=== PATIENT | female | born 2000 | race Caucasian/White ===

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

== ENCOUNTER → 2019-04-07 16:35 | Outpatient (CLI) | payer OTHER, SELFPAY ==
[2019-04-13 13:15] LABS: Neisseria gonorrhoeae, NAA Negative (Negative)
== END ==
PROVIDERS: Visit Provider Nurse Practitioner Obstetrics & Gynecology
DX: R10.2 Pelvic and perineal pain (principal); Z72.51 High risk heterosexual behavior
CPT/HCPCS: 87491; 87591

== ENCOUNTER → 2019-04-12 10:51 | Outpatient (CLI) | payer OTHER, SELFPAY ==
--- NOTE | 2019-04-12 10:52 | US_ITS ---
PROCEDURE: US TRANSVAGINAL CLINICAL INDICATION: US T/V- LLQP Left lower quadrant pain COMPARISON: [facility]BT[facility] US OB transvaginal from 04/23/2018 FINDINGS: Retroverted uterus which measures 8 x 4 x 5 cm with an 8 mm combined endometrial thickness. No uterine mass evident. Left ovary is 4 x 3 cm and contains a 15 mm cyst and other smaller follicles. Right ovary has been removed. No cul-de-sac fluid evident. IMPRESSION: Retroverted uterus. Small left ovarian cyst otherwise negative Dictated by: Steve Singer MD 04/12/2019 16:41 Electronically signed by Steve Singer MD in [facility] 04/12/2019 16:41
== END ==
PROVIDERS: PCP Internal Medicine Adolescent Medicine; Visit Provider Nurse Practitioner Obstetrics & Gynecology
DX: R10.32 Left lower quadrant pain (principal)
CPT/HCPCS: 76830

== ENCOUNTER → 2019-11-30 17:28 | Outpatient (CLI) | payer OTHER, SELFPAY ==
[2019-12-06 09:35] LABS: Neisseria gonorrhoeae, NAA Negative (Negative)
== END ==
PROVIDERS: Visit Provider Nurse Practitioner Obstetrics & Gynecology
DX: Z72.51 High risk heterosexual behavior (principal)
CPT/HCPCS: 87491; 87591

== ENCOUNTER 2020-01-27 11:42 | Emergency (ER) | payer OTHER, SELFPAY ==
[2020-01-27 11:48] VITALS: BP 154/96; PULSE 107; RESP 18; TEMP 36.8; O2SAT 98; BMI 30.9
--- NOTE | 2020-01-27 11:48 | HMH.EDUTC ---
[facility] [place] Clinical Impression: Strep throat Disposition: Home, Self-Care Condition on Discharge: Good Instructions: Strep Throat, DI for Strep Throat Additional Instructions: Drink plenty of fluids. Take tylenol or ibuprofen for pain or fever. Take the medications as directed. Follow up with your regular doctor. GO TO THE ER FOR ANY WORSENING SYMPTOMS Throw your tooth brush away and get a new one. Prescriptions: predniSONE [Deltasone 10mg tablet] 10 mg PO BID 4 Days #8 tab Transmission Status: Received by [facility] Azithromycin [Z-Jeanmarie 250mg Tab*] 250 mg PO UD DOSE PK #6 tab Transmission Status: Received by [facility] Referrals: Tobi Joel MD [Primary Care Provider] - Time of Disposition: 12:14 Medical Decision Making - Medical Records Medical records reviewed: No: I reviewed the patient's medical records. - Mayito Inquiry Pt receiving controlled substance: No Vital Signs: 01/27/20 11:48 01/27/20 12:18 Temperature 98.2 F 98.2 F Temperature Source Oral Oral Pulse Rate 107 H Pulse Rate [Radial] 107 H Respiratory Rate 18 18 Blood Pressure 154/96 H Blood Pressure [Right Arm] 154/96 H Blood Pressure Mean [Right Arm] 115 Blood Pressure Source Automatic Cuff Blood Pressure Source [Right Arm] Automatic Cuff Blood Pressure Position Sitting Blood Pressure Position [Right Arm] Sitting 02 Sat by Pulse Oximetry 98 Oxygen Delivery Method Room Air Room Air - Lab Data Lab results reviewed: Yes: I reviewed the patient's lab results. Lab Results 01/27/20 11:49: Strep Scn Rapid Clinic Positive A [facility] [place] - General Stated complaint: sore throat, stuffy nose Time Seen by Provider: 01/27/20 12:07 - History of Present Illness Provider Complaint: She c/o sore throat since yesterday. She denies any exposure to covid. She refuses a covid test today. - Related Data Previous Rx's Medication Instructions Recorded metronidazole 500 mg tablet 500 mg PO BID 14 Days #28 tab 11/30/19 Azithromycin [Z-Jeanmarie 250mg Tab*] 250 mg PO UD DOSE PK #6 tab 01/27/20 predniSONE [Deltasone 10mg tablet] 10 mg PO BID 4 Days #8 tab 01/27/20 Allergies Allergy/AdvReac Type Severity Reaction Status Date / Time Sulfa (Sulfonamide Allergy Mild Verified 11/30/19 15:46 Antibiotics) [facility] History - Hepatitis A Screen Attestation statement:: This patient has been screened for Hepatitis A risk factors. I have reviewed the patient's past medical history: Yes Medical History: Reports:: Depression, Gastroesophageal Reflux Disease(GERD), Hypertension, MRSA Denies:: Anxiety, Cancer, Diabetes Mellitus Type 1, Diabetes Mellitus Type 2, Internal Pacemaker, Migraine, Seizures Other Medical History: Denies: Blood Transfusion Reaction Comment: obesity, 6 weeks Laterality Cases: Bilateral: Myringotomy (Ear Tubes), Tonsillectomy Other Surgeries: Yes: Other. No: , Pacemaker Amputation: No Fractures: No Comment: ear tubes, right ovary and right tube removed due cyst, 10/2017 - Social History Smoking Status: Current every day smoker Tobacco Type: cigarettes # Packs/Day (cigarettes): 1 Alcohol Intake: never Alcohol Intake Frequency:: other Substance Use Type: denies use Occupational Status: unemployed Housing: apartment Household Members: significant other - Psychiatric History Pschychiatric History:: Reports:: Depression Denies:: Anxiety Family Hx:: Cancer ROS Obtained: Yes All systems reviewed & no additional complaints - Constitutional Constitutional: Reports chills, Reports fever(s), Reports poor appetite, Reports malaise - Eyes Eyes: Denies eye discharge - ENT Ears, Nose, Mouth, and Throat: Reports as per HPI - Cardiovascular Cardiovascular: Denies chest pain Physical Exam - General General appearance: alert, in no apparent distress - Head Head exam: atraumatic, normocephalic, normal inspection - Eye Ey
[2020-01-27 12:00] LABS: UTC Strep Screen (Rapid) Positive (Negative)
[2020-01-27 12:18] VITALS: BP 154/96; PULSE 107; RESP 18; TEMP 36.8; O2SAT 98
== END 2020-01-27 12:19 | disposition home or self-care (01) ==
PROVIDERS: Emergency Provider Nurse Practitioner Family; PCP Internal Medicine Adolescent Medicine
DX: J02.0 Streptococcal pharyngitis (principal); K21.9 Gastro-esophageal reflux disease without esophagitis; I10 Essential (primary) hypertension; F33.1 Major depressive disorder, recurrent, moderate; F17.210 Nicotine dependence, cigarettes, uncomplicated; Z88.2 Allergy status to sulfonamides
CPT/HCPCS: 87880; 99201

== ENCOUNTER → 2020-06-04 09:37 | Outpatient (CLI) | payer OTHER, SELFPAY ==
[2020-06-04 10:44] LABS: HCG,Quantitative 203 mIU/ml (0-5.42)
== END ==
PROVIDERS: Visit Provider Nurse Practitioner Obstetrics & Gynecology
DX: Z34.90 Encounter for supervision of normal pregnancy, unspecified, unspecified trimester (principal)
CPT/HCPCS: 36415; 84702

== ENCOUNTER 2020-08-18 20:52 | Emergency (ER) | payer OTHER, SELFPAY ==
[2020-08-18 20:53] VITALS: RESP 18; TEMP 36.8; O2SAT 99; BMI 37.8
[2020-08-18 21:19] VITALS: BP 133/79; PULSE 96; RESP 14; TEMP 37.5; O2SAT 96; BMI 32.4
--- NOTE | 2020-08-18 21:39 | HMH.EDUTC ---
[facility]: Vaginal yeast infection Disposition: Home, Self-Care Condition on Discharge: Good Instructions: DI for Vaginal Yeast Infection, Fluconazole Additional Instructions: Drink plenty of fluids. Take the medications as directed. Follow up with your accounts manager Follow up with your regular doctor. GO TO THE ER FOR ANY WORSENING SYMPTOMS Prescriptions: Fluconazole [Diflucan 100mg tablet] 100 mg PO DAILY 2 Days #2 tab Transmission Status[facility] Nystatin [Nystatin Cr 100,000 Units/GM 30GM] 1 applicatio TP BID 14 Days #1 tube Transmission Status: Received by [facility] Referrals: Tobi Joel MD [Primary Care Provider] - Time of Disposition: 21:42 Medical Decision Making - Medical Records Medical records reviewed: No: I reviewed the patient's medical records. - Mayito Inquiry Pt receiving controlled substance: No Vital Signs: 08/18/20 20:53 08/18/20 21:19 08/18/20 21:45 Temperature 98.2 F 99.5 F 99.5 F Temperature Source Oral Oral Pulse Rate 96 H Pulse Rate [Right] 96 H Respiratory Rate 18 14 14 Blood Pressure 133/79 Blood Pressure [Right Arm] 133/79 Blood Pressure Mean [Right Arm] 97 02 Sat by Pulse Oximetry 99 96 Oxygen Delivery Method Room Air Orders (Tests/Meds): ED MEDICATIONS Discontinued Medications Generic Name Dose Route Start Last Admin Trade Name Freq PRN Reason Stop Dose Admin Fluconazole 200 mg 08/19/20 09:00 Fluconazole 200mg Tablet PO 08/26/20 08:59 DAILY LIBAN Protocol Fluconazole 200 mg 08/18/20 21:43 08/18/20 21:45 Fluconazole 100mg Tablet PO 08/18/20 21:44 200 mg ONCE ONE Administration Protocol [facility] - General Chief complaint: Urogenital-Female Stated complaint: Vag is swollen Time Seen by Provider: 08/18/20 21:39 Description of Symptoms (Recalled from Triage Doc. by RN): pt states had a d/c month ago. last week was diagnosed with uti/yeast infection and group b strep in urine HEENT Symptoms (Recalled from RN notes): No Resp Symptoms (Recalled from RN notes): No Skin Symptoms (Recalled from RN notes): No MS Symptoms (Recalled from RN notes): No Functional Status (Recalled from RN notes): wnl - History of Present Illness Provider Complaint: She states that she has had vaginal irritation for the past 3 days. She believes that she has a yeast infection. She is currently on keflex for a uti. She denies that she could be . - Related Data Previous Rx's Medication Instructions Recorded metronidazole 500 mg tablet 500 mg PO BID 14 Days #28 tab 11/30/19 Azithromycin [Z-Jeanmarie 250mg Tab*] 250 mg PO UD DOSE PK #6 tab 01/27/20 predniSONE [Deltasone 10mg tablet] 10 mg PO BID 4 Days #8 tab 01/27/20 nitrofurantoin 100 mg PO Q12H 7 Days #14 cap 06/18/20 monohydrate/macrocrystals 100 mg capsule Fluconazole [Diflucan 100mg tablet] 100 mg PO DAILY 2 Days #2 tab 08/18/20 Nystatin [Nystatin Cr 100,000 1 applicatio TP BID 14 Days #1 tube 08/18/20 Units/GM 30GM] Allergies Allergy/AdvReac Type Severity Reaction Status Date / Time Sulfa (Sulfonamide Allergy Mild Verified 11/30/19 15:46 Antibiotics) - Worker's Comp Is this a Worker's Comp case?: No [facility] History - Hepatitis A Screen Drug use history?: No High risk sexual behaviors?: No History of sexually transmitted infection?: No Currently employed?: No Childcare worker?: No Do you have indoor plumbing?: Yes Do you have electricity?: Yes Attestation statement:: This patient has been screened for Hepatitis A risk factors. I have reviewed the patient's past medical history: Yes Medical History: Reports:: Depression, Gastroesophageal Reflux Disease(GERD), Hypertension, MRSA Denies:: Anxiety, Cancer, Diabetes Mellitus Type 1, Diabetes Mellitus Type 2, Internal Pacemaker, Migraine, Seizures Other Medical History: Denies: Blood Transfusion Reactio
[2020-08-18 21:45] VITALS: BP 133/79; PULSE 96; RESP 14; TEMP 37.5; O2SAT 96
== END 2020-08-18 21:46 | disposition home or self-care (01) ==
PROVIDERS: Emergency Provider Nurse Practitioner Family; PCP Internal Medicine Adolescent Medicine
DX: B37.3 Candidiasis of vulva and vagina (principal); K21.9 Gastro-esophageal reflux disease without esophagitis; I10 Essential (primary) hypertension; F33.1 Major depressive disorder, recurrent, moderate; F17.210 Nicotine dependence, cigarettes, uncomplicated
CPT/HCPCS: 99282

== ENCOUNTER 2020-09-02 13:15 | Emergency (ER) | payer OTHER, SELFPAY ==
--- NOTE | 2020-09-02 14:10 | XR_ITS ---
PROCEDURE INFORMATION: Exam: XR Left Ankle Exam date and time: 09/02/2020 2:10 PM Age: 20 years old Clinical indication: Injury or trauma; Fall; Blunt trauma; Injury details: Struck left ankle on trailer hitch while running last night. TECHNIQUE: Imaging protocol: XR Left ankle. Views: 3 or more views. COMPARISON: No relevant prior studies available. FINDINGS: Bones/joints: There is no evidence of acute fracture. There is no evidence of joint malalignment or dislocation. Soft tissues: There are no soft tissue masses or fluid collections. IMPRESSION: 1. No evidence of acute fracture. 2. No evidence of acute dislocation.
--- NOTE | 2020-09-02 14:10 | XR_ITS ---
PROCEDURE INFORMATION: Exam: XR Left Foot Exam date and time: 09/02/2020 2:10 PM Age: 20 years old Clinical indication: Injury or trauma; Fall; Blunt trauma; Left; Patient HX: Patient was running last night and hit foot on trailer hitch. ; Additional info: Tripped over trailor hitch TECHNIQUE: Imaging protocol: XR Left foot. Views: 3 or more views. COMPARISON: No relevant prior studies available. FINDINGS: Bones/joints: There is no evidence of acute fracture. There is no evidence of joint malalignment or dislocation. Soft tissues: Calcific density noted within the soft tissue adjacent to the 1st metatarsal. There are no soft tissue masses or fluid collections. IMPRESSION: 1. No evidence of acute fracture. 2. No evidence of acute dislocation.
[2020-09-02 15:14] VITALS: BP 123/84; PULSE 79; RESP 17; TEMP 37.1; O2SAT 95; BMI 32.5
[2020-09-02 15:18] VITALS: BP 123/84; PULSE 79; RESP 17; TEMP 37.1; O2SAT 95
--- NOTE | 2020-09-02 15:30 | HMH.EDUTC ---
[facility] [place] Clinical Impression: Ankle sprain Qualifiers: Encounter type: initial encounter Involved ligament of ankle: unspecified ligament Laterality: left Qualified Code(s): S93.402A - Sprain of unspecified ligament of left ankle, initial encounter Foot contusion Qualifiers: Encounter type: subsequent encounter Laterality: left Qualified Code(s): S90.32XD - Contusion of left foot, subsequent encounter Disposition: Home, Self-Care Condition on Discharge: Good Instructions: DI for Ankle Sprain, DI for Contusion, How To Perform RICE (Rest, Ice, Compress, Elevate), How to Apply an Dylon Wrap Additional Instructions: *weight bearing as tolerated *RICE, Rest the extremity, Ice 15-20 minutes 3-4 times daily, Compress- wear the dylon wrap as discussed as much as possible to help reduce swelling and pain, Elevate the extremity when at rest *Dylon wrap is for support and help control swelling, use it except in the shower. Be sure that is not to tight but not to loose either *Elevate when resting *Ibuprofen every 6-8 hours as needed for pain an inflammation. If need something more can take Tylenol in between doses of Ibuprofen to help Immediately follow up with your family doctor for new or worsening of symptoms, or no noticeable improvement over the next 3-5 days Referrals: Tobi Joel MD [Primary Care Provider] - As needed Time of Disposition: 15:38 Medical Decision Making - Mayito Inquiry Pt receiving controlled substance: No Mayito was queried for this patient: No Vital Signs: 09/02/20 15:14 09/02/20 15:18 Temperature 98.8 F 98.8 F Temperature Source Oral Pulse Rate 79 Pulse Rate [Left] 79 Respiratory Rate 17 17 Blood Pressure 123/84 Blood Pressure [Right Arm] 123/84 Blood Pressure Mean [Right Arm] 97 02 Sat by Pulse Oximetry 95 Oxygen Delivery Method Room Air - Radiology Data #1 Image(s): Ankle Image Reviewed: Yes I have reviewed radiologist's interpretation Preliminary Findings: No Fracture Seen #2 Image(s): Foot/Toes Image Reviewed: Yes I have reviewed radiologist's interpretation Preliminary Findings: No Fracture Seen Medical Decision Narrative: Patient denies any chance of last menstrual period about a week ago [facility] [place] - General Stated complaint: [id number] fell Lt ankle injury Time Seen by Provider: 09/02/20 15:30 Mode of Arrival: Ambulatory Source of Information: Patient Limitations: No Limitations Description of Symptoms (Recalled from Triage Doc. by RN): left ankle injury HEENT Symptoms (Recalled from RN notes): No Resp Symptoms (Recalled from RN notes): No Skin Symptoms (Recalled from RN notes): No MS Symptoms (Recalled from RN notes): Yes Functional Status (Recalled from RN notes): wnl - History of Present Illness Provider Complaint: Patient states that earlier today she tripped over a trailor hitch and as she stood up to run she rolled her left ankle State that ever since she has been having pain in her left ankle States that pain is in her left ankle and side of foot and noticed it looked a little swollen and had a bruise on it so she came in to get checked - Related Data Previous Rx's Medication Instructions Recorded metronidazole 500 mg tablet 500 mg PO BID 14 Days #28 tab 11/30/19 Azithromycin [Z-Jeanmarie 250mg Tab*] 250 mg PO UD DOSE PK #6 tab 01/27/20 predniSONE [Deltasone 10mg tablet] 10 mg PO BID 4 Days #8 tab 01/27/20 nitrofurantoin 100 mg PO Q12H 7 Days #14 cap 06/18/20 monohydrate/macrocrystals 100 mg capsule Fluconazole [Diflucan 100mg tablet] 100 mg PO DAILY 2 Days #2 tab 08/18/20 Nystatin [Nystatin Cr 100,000 1 applicatio TP BID 14 Days #1 tube 08/18/20 Units/GM 30GM] Allergies Allergy/AdvReac Type Severity Reaction Status Date / Time Sulfa (Sulfonamide Allergy Mild Verified 09/02/20 15:18 Antibiotics) - Worker's Comp Is this a Worker's Comp case?: No H History - Hepatitis A Screen Drug use history?: No Hi
== END 2020-09-02 15:41 | disposition home or self-care (01) ==
PROVIDERS: Emergency Provider Nurse Practitioner; PCP Internal Medicine Adolescent Medicine
DX: S90.32XA Contusion of left foot, initial encounter (principal); W18.00XA Striking against unspecified object with subsequent fall, initial encounter; Y92.89 Other specified places as the place of occurrence of the external cause; K21.9 Gastro-esophageal reflux disease without esophagitis; I10 Essential (primary) hypertension
CPT/HCPCS: 73610; 73630; 99202; G0463

== ENCOUNTER 2020-10-15 10:42 | Emergency (ER) | payer OTHER, SELFPAY ==
[2020-10-15 12:00] VITALS: BP 00/00; PULSE 0; RESP 0; TEMP -17.7; TEMP 0
== END 2020-10-15 12:01 | disposition left against medical advice (07) ==
PROVIDERS: Emergency Provider Nurse Practitioner; PCP Internal Medicine Adolescent Medicine
DX: Z53.21 Procedure and treatment not carried out due to patient leaving prior to being seen by health care provider (principal)

== ENCOUNTER 2020-11-22 18:02 | Emergency (ER) | payer OTHER, SELFPAY ==
[2020-11-22 18:37] VITALS: BP 141/90; PULSE 103; RESP 18; TEMP 37.3; O2SAT 95; BMI 29.2
[2020-11-22 19:04] VITALS: BP 137/87; PULSE 99; RESP 18; TEMP 37.3
--- NOTE | 2020-11-22 19:08 | HMH.EDUTC ---
[facility] [place] Clinical Impression: Viral upper respiratory illness Disposition: Home, Self-Care Condition on Discharge: Good Instructions: DI for Cough -- Adult, Cough, Sore Throat, DI for Nasal Congestion Additional Instructions: *Monitor Temp, Over the counter Motrin or Tylenol as directed/as needed Tylenol every 4 hours and Motrin every 6 hours (as long as your family doctor has told you that you can take it) for fever or pain. and straight to ER if unable to lower temp less than 101.0 after medication given *Warm salt water gargles may help to soothe the throat *Throat Lozenges *Warm fluids like tea with honey may help to soothe the throat *Sleep elevated *Humidifier/Vaporizer *Flonase 2 sprays in each nostril daily but be aware that it may take 2-3 days before you notice improvement Your throat swab was sent for culture. Those results are typically sent to your primary care. Be sure to follow up in 2-3 days with your family doctor/primary care physician if no improvement so they can review those result and treat if necessary. If you don?t have a primary care doctor, I recommend you get one but in the mean time, you will have to return to a walk in clinic Follow up IMMEDIATELY for new or worsening symptoms or no Noticeable improvement over the next 48-72 hours. 911 for difficulty breathing or swallowing Prescriptions: guaiFENesin [Mucinex 600mg tablet] 1 - 2 tab PO Q12HP PRN #20 tab.er.12h PRN Reason: Cough Transmission Status: Pending to [facility] methylPREDNISolone [Medrol 4mg tab] 4 mg PO DIRECTED #21 tab Transmission Status: Pending to [facility] Referrals: Tobi Joel MD [Primary Care Provider] - As needed Time of Disposition: 19:19 Medical Decision Making - Mayito Inquiry Pt receiving controlled substance: No Mayito was queried for this patient: No Vital Signs: 11/22/20 18:37 11/22/20 19:04 Temperature 99.1 F 99.1 F Temperature Source Oral Pulse Rate 99 H Pulse Rate [Left] 103 H Respiratory Rate 18 18 Blood Pressure 137/87 Blood Pressure [Right Arm] 141/90 H Blood Pressure Mean [Right Arm] 107 02 Sat by Pulse Oximetry 95 - Lab Data Lab results reviewed: Yes: I reviewed the patient's lab results. [facility] [place]PI - General Stated complaint: sore throat,congestion Time Seen by Provider: 11/22/20 19:08 Mode of Arrival: Ambulatory Source of Information: Patient Limitations: No Limitations Description of Symptoms (Recalled from Triage Doc. by RN): pt c/o a cough, nasal drainage, R ear ache, coughing, burning with cough and sore throat. son is positive for RSV and strep. HEENT Symptoms (Recalled from RN notes): Yes (runny nose, sore throat and ear aches) Resp Symptoms (Recalled from RN notes): Yes (cough) Skin Symptoms (Recalled from RN notes): No MS Symptoms (Recalled from RN notes): No Functional Status (Recalled from RN notes): na - History of Present Illness Provider Complaint: Patient states that he seen her PCP yesterday and was told that they thought she may have a viral infection States that she has been having sore throat, cough, pain in her right ears and burning in her throat when she coughs State that she has been having nasal congestion and pressure States that her son was dx with strep and RSV State that today she wasnt feeling any better so she came in to get checked - Related Data Previous Rx's Medication Instructions Recorded norgestimate 0.25 mg-ethinyl 1 tab PO DAILY #28 tab 09/12/20 estradiol 35 mcg tablet guaiFENesin [Mucinex 600mg tablet] 1 - 2 tab PO Q12HP PRN #20 11/22/20 tab.er.12h methylPREDNISolone [Medrol 4mg 4 mg PO DIRECTED #21 tab 11/22/20 tab] Allergies Allergy/AdvReac Type Severity Reaction Status Date / Time Sulfa (Sulfonamide Allergy Mild Verified 09/12/20 11:11 Antibiotics) - Worker's Comp Is this a Worker's Comp case?: No [facility] History - Hepatitis A Screen Drug us
[2020-11-22 19:16] LABS: UTC Pregnancy Test, Urine Negative (Negative)
[2020-11-22 19:17] LABS: UTC Strep Screen (Rapid) Negative (Negative)
== END 2020-11-22 19:25 | disposition home or self-care (01) ==
PROVIDERS: Emergency Provider Nurse Practitioner; PCP Internal Medicine Adolescent Medicine
DX: J06.9 Acute upper respiratory infection, unspecified (principal); I10 Essential (primary) hypertension; K21.9 Gastro-esophageal reflux disease without esophagitis
CPT/HCPCS: 81025; 87880; 99203; G0463

== ENCOUNTER → 2020-12-17 18:18 | Outpatient (CLI) | payer OTHER, SELFPAY ==
[2020-12-17 19:51] LABS: HCG,Quantitative < 2 mIU/ml (0-5.42)
== END ==
PROVIDERS: Visit Provider Nurse Practitioner Obstetrics & Gynecology
DX: N92.6 Irregular menstruation, unspecified (principal)
CPT/HCPCS: 36415; 84702

== ENCOUNTER → 2021-01-21 19:36 | Outpatient (CLI) | payer OTHER, SELFPAY ==
[2021-01-21 21:21] LABS: HCG,Quantitative 18 mIU/ml (0-5.42)
== END ==
PROVIDERS: PCP Internal Medicine Adolescent Medicine; Visit Provider Nurse Practitioner Obstetrics & Gynecology
DX: Z34.90 Encounter for supervision of normal pregnancy, unspecified, unspecified trimester (principal)
CPT/HCPCS: 36415; 84702

== ENCOUNTER 2021-01-28 15:07 | Emergency (ER) | payer OTHER, SELFPAY ==
[2021-01-28 15:20] VITALS: BP 129/90; PULSE 81; RESP 18; TEMP 37.2; O2SAT 96; BMI 28.8
[2021-01-28 15:46] LABS: UTC Strep Screen (Rapid) Positive (Negative)
--- NOTE | 2021-01-28 15:52 | HMH.EDUTC ---
[facility] [place] Clinical Impression: Strep throat Qualifiers: Weeks of gestation: less than 8 weeks Qualified Code(s): Z3A.01 - Less than 8 weeks gestation of Disposition: Home, Self-Care Condition on Discharge: Good Instructions: Strep Throat, DI for Strep Throat Additional Instructions: Drink plenty of fluids. Take tylenol for pain or fever. Take the medications as directed. Follow up with your regular doctor. GO TO THE ER FOR ANY WORSENING SYMPTOMS Throw your tooth brush away and get a new one. Prescriptions: Amoxicillin [Amoxicillin 500mg Tab] 500 mg PO TID 10 Days #30 tab Transmission Status: Received by [facility] Referrals: Tobi Joel MD [Primary Care Provider] - Time of Disposition: 16:02 Medical Decision Making - Medical Records Medical records reviewed: No: I reviewed the patient's medical records. - Mayito Inquiry Pt receiving controlled substance: No Vital Signs: 01/28/21 15:20 01/28/21 16:07 Temperature 99.0 F 99.0 F Temperature Source Oral Pulse Rate 81 Pulse Rate [Right Brachial] 81 Respiratory Rate 18 96 H Blood Pressure 129/90 Blood Pressure [Right Arm] 129/90 Blood Pressure Mean [Right Arm] 103 Blood Pressure Source [Right Arm] Automatic Cuff Blood Pressure Position [Right Arm] Sitting 02 Sat by Pulse Oximetry 96 Oxygen Delivery Method Room Air - Lab Data Lab results reviewed: Yes: I reviewed the patient's lab results. Lab Results 01/28/21 15:39: Strep Scn Rapid Clinic Positive A [facility] [place] - General Stated complaint: Sore throat Time Seen by Provider: 01/28/21 15:52 Mode of Arrival: Ambulatory Source of Information: Patient Limitations: No Limitations Description of Symptoms (Recalled from Triage Doc. by RN): PATIENT C/O SORE THROAT THAT STARTED YESTERDAY MORNING HEENT Symptoms (Recalled from RN notes): Yes Resp Symptoms (Recalled from RN notes): No Skin Symptoms (Recalled from RN notes): No MS Symptoms (Recalled from RN notes): No Functional Status (Recalled from RN notes): WNL - History of Present Illness Provider Complaint: She states that she has had a sore throat for the past 2 days. She has had chilling, but no documented fever. She denies any known exposure to covid-19. - Related Data Previous Rx's Medication Instructions Recorded norgestimate 0.25 mg-ethinyl 1 tab PO DAILY #28 tab 09/12/20 estradiol 35 mcg tablet guaiFENesin [Mucinex 600mg tablet] 1 - 2 tab PO Q12HP PRN #20 11/22/20 tab.er.12h methylPREDNISolone [Medrol 4mg 4 mg PO DIRECTED #21 tab 11/22/20 tab] Amoxicillin [Amoxicillin 500mg Tab] 500 mg PO TID 10 Days #30 tab 01/28/21 Allergies Allergy/AdvReac Type Severity Reaction Status Date / Time Sulfa (Sulfonamide Allergy Mild Verified 09/12/20 11:11 Antibiotics) - Worker's Comp Is this a Worker's Comp case?: No [facility] History - Hepatitis A Screen Drug use history?: No High risk sexual behaviors?: No History of sexually transmitted infection?: No Currently employed?: No Childcare worker?: No Do you have indoor plumbing?: Yes Do you have electricity?: Yes Attestation statement:: This patient has been screened for Hepatitis A risk factors. I have reviewed the patient's past medical history: Yes Medical History: Reports:: Depression, Gastroesophageal Reflux Disease(GERD), Hypertension, MRSA Denies:: Anxiety, Cancer, Diabetes Mellitus Type 1, Diabetes Mellitus Type 2, Internal Pacemaker, Migraine, Seizures Other Medical History: Denies: Blood Transfusion Reaction Comment: obesity, 6 weeks Laterality Cases: Bilateral: Myringotomy (Ear Tubes), Tonsillectomy Other Surgeries: Yes: Dilation and Curettage, Other. No: , Pacemaker Amputation: No Fractures: No Comment: ear tubes, right ovary and right tube removed due cyst, 10/2017 - Social History Smoking Status: Never smoker Tobacco Type: cigarettes # Packs/Day
[2021-01-28 16:07] VITALS: BP 129/90; PULSE 81; RESP 96; TEMP 37.2
== END 2021-01-28 16:17 | disposition home or self-care (01) ==
PROVIDERS: Emergency Provider Nurse Practitioner Family; PCP Internal Medicine Adolescent Medicine
DX: J02.0 Streptococcal pharyngitis (principal); Z3A.01 Less than 8 weeks gestation of pregnancy; I10 Essential (primary) hypertension; K21.9 Gastro-esophageal reflux disease without esophagitis; F33.1 Major depressive disorder, recurrent, moderate
CPT/HCPCS: 87880; 99202; G0463

== ENCOUNTER → 2021-02-01 13:45 | Outpatient (CLI) | payer OTHER, SELFPAY ==
[2021-02-01 15:12] LABS: HCG,Quantitative 1058 mIU/ml (0-5.42)
== END ==
PROVIDERS: Visit Provider Nurse Practitioner Obstetrics & Gynecology
DX: N92.6 Irregular menstruation, unspecified (principal)
CPT/HCPCS: 36415; 84702

== ENCOUNTER → 2021-02-04 14:44 | Outpatient (CLI) | payer OTHER, SELFPAY ==
[2021-02-04 15:58] LABS: HCG,Quantitative 2542 mIU/ml (0-5.42)
== END ==
PROVIDERS: Visit Provider Obstetrics & Gynecology
DX: Z34.90 Encounter for supervision of normal pregnancy, unspecified, unspecified trimester (principal)
CPT/HCPCS: 36415; 84702

== ENCOUNTER → 2021-02-11 11:23 | Outpatient (CLI) | payer OTHER, SELFPAY ==
[2021-02-11 12:21] LABS: HCG,Quantitative 5016 mIU/ml (0-5.42)
== END ==
PROVIDERS: Visit Provider Obstetrics & Gynecology
DX: Z34.90 Encounter for supervision of normal pregnancy, unspecified, unspecified trimester (principal)
CPT/HCPCS: 36415; 84702

== ENCOUNTER → 2021-02-13 12:16 | Outpatient (CLI) | payer OTHER, SELFPAY ==
[2021-02-13 13:53] LABS: HCG,Quantitative 5376 mIU/ml (0-5.42)
== END ==
PROVIDERS: Visit Provider Obstetrics & Gynecology
DX: Z34.90 Encounter for supervision of normal pregnancy, unspecified, unspecified trimester (principal)
CPT/HCPCS: 36415; 84702

== ENCOUNTER 2021-02-13 19:28 | Inpatient (IN) | payer OTHER, SELFPAY ==
[2021-02-13 19:29] VITALS: BP 120/82; PULSE 72; RESP 16; TEMP 37; O2SAT 97; BMI 28.3
[2021-02-13 21:20] LABS: Microscopic, Urine URINE MICROSCOPIC (MICROSCOPIC)
[2021-02-13 21:22] LABS: Appearance,Urine CLOUDY (Clear); Bilirubin,Urine Negative (Negative); Blood, Urine Negative (Negative); Color,Urine YELLOW (Yellow); Glucose,Urine (UA) Negative (Negative); Ketones,Urine Negative (Negative); Leukocyte Esterase,Urine 2+ (Negative); Nitrate,Urine Negative (Negative); Protein,Urine Negative (Negative); Specific Gravity, Urine 1.025 (1.005-1.030); Urobilinogen,Urine 0.2 EU/dl (0.2)
[2021-02-13 21:24] LABS: Urine Pregnancy, HCG Qual. Positive (Negative)
--- NOTE | 2021-02-13 21:26 | HMH.EDPREG ---
ED Disposition Clinical Impression: Ectopic Qualifiers: Location of ectopic : tubal Intrauterine status: without intrauterine Laterality: left Qualified Code(s): O00.102 - Left tubal without intrauterine Disposition: Admitted As Inpatient Condition on Discharge: Good Referrals: Tobi Joel MD [Primary Care Provider] - - Critical Care Critical Care Time: No Attestation: On 02/13/21, the high probability of a clinically significant, sudden or life threatening deterioration of the following system(s) required my full and direct attention, intervention and personal management. The time I documented below is in addition to time spent performing reported procedures but includes the following listed in this critical care notation. Medical Decision Making - Medical Records Medical records reviewed: Yes: I reviewed the patient's medical records. - Mayito Inquiry Pt receiving controlled substance: No Vital Signs: 02/13/21 19:29 Temperature 98.6 F Temperature Source Oral Pulse Rate [Left] 72 Respiratory Rate 16 Blood Pressure [Right Arm] 120/82 Blood Pressure Mean [Right Arm] 94 02 Sat by Pulse Oximetry 97 Oxygen Delivery Method Room Air - Lab Data Lab results reviewed: Yes: I reviewed the patient's lab results. Lab Results 02/13/21 21:17: Urine Color Yellow, Urine Appearance Cloudy, Urine pH 6.0, Ur Specific [place] 1.025, Urine Protein Negative, Urine Glucose (UA) Negative, Urine Ketones Negative, Urine Blood Negative, Urine Nitrate Negative, Urine Bilirubin Negative, Urine Urobilinogen 0.2, Ur Leukocyte Esterase 2+ A, Urine WBC 20-50, Ur Squamous Epith Cells 20-50, Urine Bacteria 4+ 02/13/21 21:17: Urine HCG, Qual Positive 02/13/21 21:33: HCG, Quant 5297 H 02/13/21 21:33: Serum HCG, Qual Positive 02/13/21 21:33: WBC 6.7, RBC 5.60 H, Hgb 16.9 H, Hct 50.4 H, MCV 90.0, MCH 30.2, MCHC 33.5, RDW 12.7, Plt Count 238, MPV 6.8 L, Neut % (Auto) 66.8, Lymph % (Auto) 24.2, [place] % (Auto) 5.2, Eos % (Auto) 1.3, Baso % (Auto) 2.7 H, Neut # (Auto) 4.5, Lymph # (Auto) 1.6, [place] # (Auto) 0.3, Eos # (Auto) 0.1, Baso # (Auto) 0.2 02/13/21 21:33: Sodium 140, Potassium 3.9, Chloride 102, Carbon Dioxide 27, Anion Gap 14.9, BUN 6 L, Creatinine 0.60, Estimated Creat Clear 175, Estimated GFR 126, Est GFR ( Amer) 153, Glucose 82, Calcium 9.7, Total Bilirubin 0.5, AST 29, ALT 24, Alkaline Phosphatase 75, Total Protein 8.5 H, Albumin 4.6, Globulin 3.9 H, Albumin/Globulin Ratio 1.2 Result diagrams: 02/13/21 21:33 02/13/21 21:33 Orders (Tests/Meds): ED MEDICATIONS Generic Name Dose Route Start Last Admin Trade Name Freq PRN Reason Stop Dose Admin Sodium Chloride 1,000 mls @ 999 mls/hr 02/13/21 21:45 02/13/21 21:49 Sod Chlor 0.9% 1000ml Bag IV 02/13/21 22:45 999 mls/hr .Q1H1M LIBAN Administration ORDERS Category Date Time Status US transvaginal Stat Exams 02/13/21 21:41 Ordered Urine Culture Stat Micro 02/13/21 21:17 Received - US Data US Images: Pelvis ED US Reviewed: Yes: I discussed the US results w/the radiologist Preliminary Findings: Abnormal Pelvis (ectopic preg ) - Physician Consults Physician Consulted: dov Reason -: Pt condition HPI - General Chief complaint: OB/Uterine Contractions Stated complaint: cramping 6-8 weeks Time Seen by Provider: 02/13/21 20:00 Mode of Arrival: Ambulatory Source of Information: Patient, Medical Record Limitations: No Limitations Description of Symptoms (Recalled from ER Triage Doc. by RN): pt cramping states her dr puts her at 6-8 weeks via blood test lmp was jan 25, short 2 days - History of Present Illness HPI Narrative: crampy abd pain w/o vag bleeding Complaint: other (pelvic pain) Onset (ago): hour(s) Consistency: intermittent Severity: moderate Quality: cramping Radiation: pelvis Associated symptoms: denies other symptoms : Yes Date of
[2021-02-13 21:30] LABS: Bacteria,Urine 4+ /lpf; Squamous Epithelial Cell,Urine 20-50 #/hpf (0-5); WBC,Urine 20-50 #/hpf (0-3)
--- NOTE | 2021-02-13 21:41 | US_ITS ---
PROCEDURE INFORMATION: Exam: US , Transvaginal Exam date and time: 02/13/2021 9:41 PM Age: 20 years old Clinical indication: complicated by abdominal or pelvic pain; Lower; First trimester (<14 weeks 0 days); Gestational age or lmp: 6w3; ; Prior surgery; Surgery date: 6+ months; Surgery type: RT ov tube removed x few yrs; Patient HX: Cramping TECHNIQUE: Imaging protocol: Real-time transvaginal obstetrical ultrasound of the maternal pelvis with image documentation. Transvaginal imaging was used for better evaluation of the fetus, adnexa, and/or cervix. COMPARISON: US TRANSVAGINAL 04/12/2019 10:57 AM FINDINGS: This examination is limited due to limited transverse images of the uterine body and fundus. The uterus is retroverted and retroflexed. To the left of midline, there is a gestational sac. The position of the gestational sac is not within the center of the endometrial cavity but is somewhere between the left fallopian tube and the endometrial cavity. The presence of an ectopic gestational is considered. Within the gestational sac there is a single embryonic pole. [place]-rump length of the embryonic pole is 0.65 cm. This corresponds to gestational age of 6 weeks 4 days. There is a yolk sac identified which measures 4 mm in diameter. By history the right ovary is surgically absent. The left ovary measures 5.1 x 4.6 x 4.9 cm. There is a 2.6 x 2.2 cm cyst within the left ovary, compatible with a corpus luteum cyst. A smaller crenated cyst with some internal debris is also identified within the left ovary. There is normal arterial inflow and venous outflow to the left ovary. There is a small amount of free fluid identified within the cul-de-sac. IMPRESSION: 1. On the submitted images it is difficult to absolutely identified the position of the gestational sac. It can be said with certainty that it is not within the central portion of the endometrial cavity. It is also not clearly within the fallopian tube. This raises the possibility of a left interstitial or angular . 2. The right ovary is surgically absent. 3. There are 2 cystic structures within the left ovary. The largest appears anechoic. The smaller appears to be somewhat crenated with some low level internal echoes. 4. There is a small amount of free fluid identified within the cul-de-sac.
[2021-02-13 21:49] LABS: Basophils # 0.2 K/mm3 (0-0.2); Basophils % 2.7 % (0.1-2.0); Eosinophils # 0.1 K/mm3 (0.0-0.4); Eosinophils % 1.3 % (0.1-12.0); Hematocrit 50.4 % (37.0-47.0); Hemoglobin 16.9 g/dL (12.2-16.2); Lymphocytes # 1.6 K/mm3 (0.7-4.5); Lymphocytes % 24.2 % (10-50); Mean Corpuscular HGB Conc 33.5 g/dL (31.8-35.4); Mean Corpuscular Hemoglobin 30.2 pg (27.0-31.2); Mean Platelet Volume 6.8 fl (7.4-10.4); Monocytes # 0.3 K/mm3 (0.1-1.0); Monocytes % 5.2 % (1.7-9.3); Neutrophils # 4.5 K/mm3 (1.8-7.8); Neutrophils % 66.8 % (37.0-80.0); Platelet Count 238 K/mm3 (142-424); Red Cell Distribution Width 12.7 % (11.5-17.5); White Blood Count 6.7 K/mm3 (4.8-10.8)
[2021-02-13 22:06] LABS: Alanine Aminotransferase 24 U/L (12-78); Albumin Level 4.6 g/dl (3.5-5.0); Albumin/Globulin Ratio 1.2 (1.1-1.8); Alkaline Phosphatase 75 U/L (38-126); Anion Gap 14.9 mEq/L (5-15); Aspartate Amino Transferase 29 U/L (14-36); Bilirubin,Total 0.5 mg/dl (0.2-1.3); Blood Urea Nitrogen 6 mg/dl (7-17); Calcium 9.7 mg/dl (8.4-10.2); Carbon Dioxide 27 mmol/L (22.0-30.0); Chloride 102 mmol/L (98-107); Creatinine Clearance Estimated 175 mL/min (50-200); Estimated Glomerular Filt Rate 126 ml/min (>60); GFR (African American) 153 ML/MIN (>60); Globulin 3.9 g/dL (1.3-3.2); Glucose 82 mg/dl (74-100); HCG Qualitative, Serum Positive (Negative); Potassium 3.9 mmoL/L (3.5-5.1); Sodium 140 mmol/L (136-145); Total Protein,Serum 8.5 g/dl (6.3-8.2)
--- NOTE | 2021-02-13 22:18 | PC.NURSE ---
pt is with [employer]
[2021-02-13 22:24] LABS: HCG,Quantitative 5297 mIU/ml (0-5.42)
--- NOTE | 2021-02-13 22:37 | PC.NURSE ---
pt returned from u/s. Per tech Rosa, pt has an ectopic . Live fetus that measures 6wk, [address]d. paged Dr. Chowdary.
--- NOTE | 2021-02-13 22:42 | PC.NURSE ---
U/S henrry Lee and Dr. Fritz s/w Dr. Chowdary.
--- NOTE | 2021-02-13 22:46 | PC.NURSE ---
OR TEAM PAGED AT THIS TIME
--- NOTE | 2021-02-13 22:46 | PC.NURSE ---
Dr. Chowdary is going to take the pt to surgery. House notified to call in surgery team.
--- NOTE | 2021-02-13 22:48 | PC.NURSE ---
Dann Dempsey CRNA returned call at this time. Notified him of pt name, , and proposed procedure.
--- NOTE | 2021-02-13 22:51 | PC.NURSE ---
ITZ Burns returned call at this time. Notified her of pt name, , and proposed procedure.
--- NOTE | 2021-02-13 22:56 | PC.NURSE ---
Rafael David RN returned call at this time. Notified her of pt name, , and proposed procedure.
--- NOTE | 2021-02-13 23:04 | PC.NURSE ---
Dr. Chowdary with pt at bedside
[2021-02-13 23:10] LABS: Coronavirus 19, PCR Not Detected (NotDetected); Influenza A, PCR Not Detected (NotDetected); Influenza B, PCR Not Detected (NotDetected)
--- NOTE | 2021-02-13 23:17 | HMH.HP ---
*Admission Date: 02/13/21 *Chief complaint: Lower abdominal pain *History of present illness: She is a 20-year-old 3 para 1 aborta 1 who is about 6 weeks gestational age. She came in with lower abdominal pain. Ultrasound shows that she has an ectopic at 6 weeks. She has had a previous RSO. [facility] History I have reviewed the patient's past medical history: Yes Medical History: Reports:: Depression, Gastroesophageal Reflux Disease(GERD), Hypertension, MRSA Denies:: Anxiety, Cancer, Diabetes Mellitus Type 1, Diabetes Mellitus Type 2, Internal Pacemaker, Migraine, Seizures *Have you ever received a pneumonia vaccine?: No *Have you received a flu vaccine this season?: No Other Medical History: Denies: Blood Transfusion Reaction Laterality Cases: Bilateral: Myringotomy (Ear Tubes), Tonsillectomy Other Surgeries: Yes: Dilation and Curettage, Other. No: , Pacemaker Amputation: No Fractures: No - *Social History Smoking Status: Never smoker Tobacco Type: cigarettes # Packs/Day (cigarettes): 1 Alcohol Intake: never Alcohol Intake Frequency:: other Substance Use Type: denies use *Occupational Status:: other Housing: apartment Household Members: significant other *Travel in the last 8 weeks: None - Psychiatric History Pschychiatric History:: Reports:: Depression Denies:: Anxiety Family Hx:: Cancer MEDICAL IMAGING TECHNOLOGIST history: Spontaneous Para: 1 Review of Systems - Review of Systems Review of systems:: pertinent systems reviewed and negative unless documented below - *Neurologic Denies localized weakness, Denies seizure-like activity Meds Home Medications Medication Instructions Recorded Confirmed Type norgestimate 0.25 mg-ethinyl 1 tab PO DAILY #28 tab 09/12/20 09/12/20 Rx estradiol 35 mcg tablet guaiFENesin [Mucinex 600mg tablet] 1 - 2 tab PO Q12HP PRN #20 11/22/20 Rx tab.er.12h methylPREDNISolone [Medrol 4mg 4 mg PO DIRECTED #21 tab 11/22/20 Rx tab] Amoxicillin [Amoxicillin 500mg Tab] 500 mg PO TID 10 Days #30 tab 01/28/21 Rx Allergies Allergy/AdvReac Type Severity Reaction Status Date / Time Sulfa (Sulfonamide Allergy Mild Verified 09/12/20 11:11 Antibiotics) Exam Vital signs and Labs for Last 24 Hours: Temp Pulse Resp BP Pulse Ox 98.6 F 72 16 120/82 97 02/13/21 19:29 02/13/21 19:29 02/13/21 19:29 02/13/21 19:29 02/13/21 19:29 Laboratory Results - last 24 hr 02/13/21 21:17: Urine Color Yellow, Urine Appearance Cloudy, Urine pH 6.0, Ur Specific [place] 1.025, Urine Protein Negative, Urine Glucose (UA) Negative, Urine Ketones Negative, Urine Blood Negative, Urine Nitrate Negative, Urine Bilirubin Negative, Urine Urobilinogen 0.2, Ur Leukocyte Esterase 2+ A, Urine WBC 20-50, Ur Squamous Epith Cells 20-50, Urine Bacteria 4+ 02/13/21 21:17: Urine HCG, Qual Positive 02/13/21 21:33: HCG, Quant [id number] H 02/13/21 21:33: Serum HCG, Qual Positive 02/13/21 21:33: WBC 6.7, RBC 5.60 H, Hgb 16.9 H, Hct 50.4 H, MCV 90.0, MCH 30.2, MCHC 33.5, RDW 12.7, Plt Count 238, MPV 6.8 L, Neut % (Auto) 66.8, Lymph % (Auto) 24.2, [place] % (Auto) 5.2, Eos % (Auto) 1.3, Baso % (Auto) 2.7 H, Neut # (Auto) 4.5, Lymph # (Auto) 1.6, [place] # (Auto) 0.3, Eos # (Auto) 0.1, Baso # (Auto) 0.2 02/13/21 21:33: Sodium 140, Potassium 3.9, Chloride 102, Carbon Dioxide 27, Anion Gap 14.9, BUN 6 L, Creatinine 0.60, Estimated Creat Clear 175, Estimated GFR 126, Est GFR ( Amer) 153, Glucose 82, Calcium 9.7, Total Bilirubin 0.5, AST 29, ALT 24, Alkaline Phosphatase 75, Total Protein 8.5 H, Albumin 4.6, Globulin 3.9 H, Albumin/Globulin Ratio 1.2 I & O for Last 24 hours: Intake & Output 10/18/21 10/19/21 10/20/21 10/21/21 11:59 11:59 11:59 11:59 Weight 165 lb - Constitutional no acute distress - *Routine HEENT Exam Head: Present: normocephalic Eye: Present: EOMI, PERRL ENT: Present: mucous membranes moist - *Routine Neck Exam Present: supple, full ROM - *Routine Res
--- NOTE | 2021-02-13 23:35 | PC.NURSE ---
Per House, pt is ok to have a visitor stay with her. Pt's mother was brought back to see pt with her child. Then left to go home. Pt's boyfriend with pt at this time waiting on surgery team to complete set up.
[2021-02-13 23:36] VITALS: BP 126/94; PULSE 104; RESP 16; TEMP 37; O2SAT 100
[2021-02-14] VITALS (23 sets, daily range): BP systolic 102–158; BP diastolic 57–93; PULSE 59–102; RESP 12–18; TEMP 36.2–38; O2SAT 93–99
--- NOTE | 2021-02-14 00:25 | P.PN_ITS ---
[facility] Anesthesia Checklist - Patient Identification Patient Identification: Arm Band, Verbal (Name & ) - Structural Data Admitted From: Home Planned Operative Procedure/s: Laparascopic Salpingoscopy Verified Documents: Surgical Consent - NPO Status Verified Time NPO: 01:30 - Chart Verification Results Verified: CBC, BMP - Additional verifications Anesthesia Reactions: No Hx Blood Transfusions: No Blood Transfusion Reaction: No - Cardiovascular Assessment Heart Sounds: S1 & S2 Pulse Rhythm: Regular - Airway Assessment C-Spine Mobility Assessed: Yes TMJ Mobility Assessed: Yes Dentition: Good Dentition - Neurological Assessment Level of Consciousness: Awake, Alert, Appropriate - Anesthesia Plan Anesthesia Risk discussed: Yes ASA Class: II Anesthesia Type: General [facility] History I have reviewed the patient's past medical history: Yes Medical History: Reports:: Depression, Gastroesophageal Reflux Disease(GERD), H ypertension, MRSA Denies:: Anxiety, Cancer, Diabetes Mellitus Type 1, Diabetes Mellitus Type 2, Internal Pacemaker, Migraine, Seizures *Have you ever received a pneumonia vaccine?: No *Have you received a flu vaccine this season?: No Other Medical History: Denies: Blood Transfusion Reaction Anesthesia experience/problems:: no issues Laterality Cases: Bilateral: Myringotomy (Ear Tubes), Tonsillectomy Other Surgeries: Yes: Dilation and Curettage, Other. 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
--- NOTE | 2021-02-14 01:49 | HMH.OPNOTE ---
Date of procedure: 02/14/21 Pre-op Diagnosis:: Ectopic Post-op Diagnosis:: Right cornual ectopic Procedure performed:: Diagnostic laparoscopy with conversion to laparotomy, removal of cornual/tubal right ectopic Surgeon:: David Chowdary MD OPEN END SPINNING OPERATOR:: Other (Time Inocencia) Anesthesia: GETA Estimated blood loss (mL): 100 Clinical Note:: Is a 20-year-old 3 para 1 aborta 1 who came in with some lower abdominal pain. She is about 6 weeks gestational age. An ultrasound showed that she had an ectopic . It was not clear what tube it was in. After having discussed the risks and benefits we elected perform a laparoscopic removal of ectopic . Operative findings:: I was not able to get into the abdominal cavity and when I put the Veress needle in. She was very short from her vulva to umbilicus. After a couple of tries and inserting the scope I elected to abandon the laparoscopic approach and go via a laparotomy. She had an ectopic at the right cornua of the uterus. Its not clear whether this was just in the stub of tube or whether it was actually at the cornua. It was quite superficial. Left tube appeared completely normal. Left ovary was normal. There was a small cyst on the left ovary. Operative note:: She was taken the operating room where general anesthesia was found be adequate. She was prepped Haleigh sterile fashion in the semilithotomy position. Weighted speculum was placed in vagina and the anterior lip of the cervix was grasped with a tenaculum. I then inserted a Penelope uterine manipulator into the uterine cavity. The balloon was insufflated. I changed gloves and injected 10 cc of ropivacaine around the umbilicus. I then made a small incision within the umbilicus and inserted a Veress needle. I then insufflated the abdominal cavity with carbon oxide gas to pressure 20 mils mercury. I then inserted an 11 mm trocar under direct vision and I was not able to get into the abdominal cavity. I think it was preperitoneal. As result of that I elected to abandon the procedure and perform a laparotomy. She was reprepped and draped in the supine position with a Cuellar catheter. She was very short from the umbilicus to the mons and as result of that I elected to perform a midline laparotomy. Using knife I went through the skin in the midline through to the underlying layer of fat. Then using traction countertraction I the fat. Using cautery I then opened up to the fascia. I then opened up the fascia in the midline with cautery. This was extended superiorly and inferiorly. I then grasped the peritoneum with hemostats and tented this up. I then entered the abdominal cavity sharply with scissors. This incision was then extended superiorly and inferiorly with both cautery and scissors with good visualization of the bladder inferiorly. We then inserted an O'Jass-O'Atkinson retractor and packed away the bowel with warm moist packs. The abdominal cavity was inspected and the ectopic was found on the right side. Her left tube and ovary were completely normal. She had had a previous right salpingo-oophorectomy. The edge of the cornua was grasped with a long Karrie and the ectopic was grasped with a Herculaneum. Using cautery I circumscribed the ectopic and was able to remove it in its entirety. I then performed cautery on the uterus. I then oversewed the defect in the uterus with 2-0 Vicryl suture. This was performed in 2 layers. After assuring hemostasis I then placed a large piece of Surgicel over the incision followed by a piece of Interceed. Once again we assured hemostasis. The peritoneum was then grasped with Karrie clamps and closed using running 2-0 Vicryl suture. The fascia was closed with 2 sutures of #1 Vicryl. I started superiorly and went to the midline. I then started inferiorly and went to the midline. Each suture was tied in
--- NOTE | 2021-02-14 02:14 | P.PN_ITS ---
[facility] Anesthesia Record Part I Intake, IV Amount: 1,500 Estimated blood loss (mL): 90 Urine output (mL): 50 Blood Pressure: 106/67 SaO2: 96 Pulse Rate: 66 Respiratory Rate: 12 Temperature: 97.2 F Patient is:: Drowsy, Mask O2, Oral/Nasal airway Stable to PACU at:: 02:10
--- NOTE | 2021-02-14 03:19 | SUR.OPER ---
02/14/[address] Chowdary made decision to open 02/14/2199 Open incision was made 02/14/21109 Boyfriend was notified of transition from laparoscopy to laparotomy.
[2021-02-14 06:35] LABS: Basophils % 0.2 % (0.1-2.0); Eosinophils % 0.5 % (0.1-12.0); Hematocrit 41.7 % (37.0-47.0); Lymphocytes # 0.5 K/mm3 (0.7-4.5); Lymphocytes % 6.7 % (10-50); MANUAL DIFFERENTIAL MANUAL DIFFERENTIAL (MANUAL DIFF); Mean Corpuscular HGB Conc 33.4 g/dL (31.8-35.4); Mean Corpuscular Hemoglobin 29.9 pg (27.0-31.2); Mean Corpuscular Volume 89.5 fl (81-99); Mean Platelet Volume 6.6 fl (7.4-10.4); Monocytes # 0.1 K/mm3 (0.1-1.0); Monocytes % 1.6 % (1.7-9.3); Neutrophils % 90.9 % (37.0-80.0); Platelet Count 200 K/mm3 (142-424); Red Blood Count 4.66 M/mm3 (4.20-5.40); Red Cell Distribution Width 12.6 % (11.5-17.5); White Blood Count 7.7 K/mm3 (4.8-10.8)
[2021-02-14 06:41] LABS: Chloride 105 mmol/L (98-107); Potassium 4.2 mmoL/L (3.5-5.1); Sodium 135 mmol/L (136-145)
[2021-02-14 06:44] LABS: Anion Gap 12.2 mEq/L (5-15); Blood Urea Nitrogen 6 mg/dl (7-17); Calcium 8.6 mg/dl (8.4-10.2); Carbon Dioxide 22 mmol/L (22.0-30.0); Creatinine Clearance Estimated 210 mL/min (50-200); Estimated Glomerular Filt Rate 156 ml/min (>60); GFR (African American) 188 ML/MIN (>60); Glucose 137 mg/dl (74-100)
--- NOTE | 2021-02-14 07:16 | PC.NURSE ---
REPORT GIVEN TO Viri MARCUS RN
[2021-02-14 07:28] LABS: Lymphocytes % 9 % (10-50); Monocytes % 1 % (2-9); Neutrophils % 90 % (42-76); Platelet Estimate Normal; RBC Morphology Normal; Total Cells Counted 100
[2021-02-14 07:50] LABS: Hemoglobin 13.9 g/dL (12.2-16.2)
--- NOTE | 2021-02-14 08:09 | HMH.PHAVTE ---
[facility] Pharmacy VTE Monitoring - Patient Demographics Admission date: 02/14/21 Report Date: 02/14/21 Time: 08:09 Allergies/Adverse Reactions: Patient Allergies Sulfa (Sulfonamide Antibiotics) Allergy (Mild, Verified 09/12/20 11:11) Height: 1.63 m Weight: 74.843 kg Patient Problems: Current Active Problems Ectopic (Acute) Ectopic (Acute) - VTE Risk Labs: VTE Related Lab Results Hgb 13.9 g/dL (12.2-16.2) D 02/14/21 06:22 Hct 41.7 % (37.0-47.0) 02/14/21 06:22 Plt Count 200 K/mm3 (142-424) 02/14/21 06:22 BUN 6 mg/dl (7-17) L 02/14/21 06:22 Creatinine 0.50 mg/dl (0.52-1.04) L 02/14/21 06:22 Estimated Creat Clear 210 mL/min (50-200) 02/14/21 06:22 Was VTE Risk Assessment Performed: Yes VTE Risk Level: Very Low Risk - Prophylaxis VTE Prophylaxis Ordered?: Yes Types of VTE Prophylaxis: IPCS Thigh High Location of Applied Device: Bilateral Lower Extremeties
--- NOTE | 2021-02-14 09:27 | HMH.ACPN2 ---
Internal Medicine - PN: Subj *Date: 02/14/21 *Time: 09:27 Interval history: She is doing very well this morning. She is in minimal pain. She had a T AP block last night. Her lochia is normal. Her blood work is stable. Her blood pressure is stable. She is putting out a good amount of urine. She still has a Cuellar catheter. Exam Vital signs and Labs for Last 24 Hours: Temp Pulse Resp BP Pulse Ox 98.3 F 82 18 141/76 H 96 02/14/21 06:08 02/14/21 06:55 02/14/21 06:55 02/14/21 06:55 02/14/21 06:55 Laboratory Results - last 24 hr 02/13/21 21:17: Urine Color Yellow, Urine Appearance Cloudy, Urine pH 6.0, Ur Specific [place] 1.025, Urine Protein Negative, Urine Glucose (UA) Negative, Urine Ketones Negative, Urine Blood Negative, Urine Nitrate Negative, Urine Bilirubin Negative, Urine Urobilinogen 0.2, Ur Leukocyte Esterase 2+ A, Urine WBC 20-50, Ur Squamous Epith Cells 20-50, Urine Bacteria 4+ 02/13/21 21:17: Urine HCG, Qual Positive 02/13/21 21:33: HCG, Quant 5297 H 02/13/21 21:33: Serum HCG, Qual Positive 02/13/21 21:33: WBC 6.7, RBC 5.60 H, Hgb 16.9 H, Hct 50.4 H, MCV 90.0, MCH 30.2, MCHC 33.5, RDW 12.7, Plt Count 238, MPV 6.8 L, Neut % (Auto) 66.8, Lymph % (Auto) 24.2, [place] % (Auto) 5.2, Eos % (Auto) 1.3, Baso % (Auto) 2.7 H, Neut # (Auto) 4.5, Lymph # (Auto) 1.6, [place] # (Auto) 0.3, Eos # (Auto) 0.1, Baso # (Auto) 0.2 02/13/21 21:33: Sodium 140, Potassium 3.9, Chloride 102, Carbon Dioxide 27, Anion Gap 14.9, BUN 6 L, Creatinine 0.60, Estimated Creat Clear 175, Estimated GFR 126, Est GFR ( Amer) 153, Glucose 82, Calcium 9.7, Total Bilirubin 0.5, AST 29, ALT 24, Alkaline Phosphatase 75, Total Protein 8.5 H, Albumin 4.6, Globulin 3.9 H, Albumin/Globulin Ratio 1.2 02/13/21 22:58: SARS-CoV-2 (PCR) Not detected, Influenza A Untype (PCR) Not detected, Influenza Type B (PCR) Not detected 02/14/21 06:22: WBC 7.7, RBC 4.66, Hgb 13.9 D, Hct 41.7, MCV 89.5, MCH 29.9, MCHC 33.4, RDW 12.6, Plt Count 200, MPV 6.6 L, Neut % (Auto) 90.9 H, Lymph % (Auto) 6.7 L, [place] % (Auto) 1.6 L, Eos % (Auto) 0.5, Baso % (Auto) 0.2, Neut # (Auto) 7.0, Lymph # (Auto) 0.5 L, [place] # (Auto) 0.1, Eos # (Auto) 0.0, Baso # (Auto) 0.0, Total Counted 100, Neutrophils % (Manual) 90 H, Lymphocytes % (Manual) 9 L, Monocytes % (Manual) 1 L, Platelet Estimate Normal, RBC Morphology Normal 02/14/21 06:22: Sodium 135 L, Potassium 4.2, Chloride 105, Carbon Dioxide 22, Anion Gap 12.2, BUN 6 L, Creatinine 0.50 L, Estimated Creat Clear 210, Estimated GFR 156, Est GFR ( Amer) 188 D, Glucose 137 H D, Calcium 8.6 I & O for Last 24 hours: Intake & Output 02/11/21 02/12/21 02/13/21 02/14/21 11:59 11:59 11:59 11:59 Intake Total 1500 / 1500 Output Total Balance 1475 / 1475 Weight 165 lb - Constitutional no acute distress - *Routine HEENT Exam Head: Present: normocephalic Eye: Present: EOMI, PERRL ENT: Present: mucous membranes moist Assessment and Plan (1) Ectopic Status: Acute Category: Medical Code(s): O00.90 - Unspecified ectopic without intrauterine (2) Ectopic Status: Acute Qualifiers: Location of ectopic : tubal Intrauterine status: without intrauterine Laterality: left Qualified Code(s): O00.102 - Left tubal without intrauterine Category: Medical Code(s): O00.90 - Unspecified ectopic without intrauterine - Assessment and plan all Dx Assessment and Plan for all problems:: She is doing very well this morning. We will plan to watch her for the next couple of days. She had a tap block and this seems to have helped with her discomfort.
[2021-02-14 09:38] LABS: Microscopic,Cath URINE MICROSCOPIC (MICROSCOPIC)
[2021-02-14 09:52] LABS: Appearance,Urine/Cath SL CLOUDY (Clear); Bilirubin,Cath Negative (Negative); Blood, Urine/Cath Negative (Negative); Color,Urine/Cath YELLOW (Yellow); Glucose,Urine/Cath (UA) Negative (Negative); Ketones,Urine/Cath TRACE (Negative); Leukocyte Esterase,Cath 1+ (Negative); Nitrate,Cath Negative (Negative); PH,Urine/Cath 5.5 (5.0-8.5); Protein,Urine/Cath Negative (Negative); Specific Gravity, Urine/Cath >= 1.030 (1.005-1.030); Urobilinogen,Cath 0.2 EU/dl (0.2)
[2021-02-14 10:10] LABS: Bacteria,Urine/Cath TRACE /lpf
--- NOTE | 2021-02-14 12:27 | PC.NURSE ---
Pt's mother visiting at bs. Denies any needs at this time.
--- NOTE | 2021-02-14 16:15 | PC.NURSE ---
Pt has rested well today. Is ambulating to bathroom and back with standby assist. Scant amt of vaginal bleeding noted. Has been voiding well and without difficulty since d/c of hunter cath. LR continues infusing at 125ml/hr. Diet was advanced to regular tonight for dinner. Lungs clear. BS hypoactive. Small amt of shadowing noted on incision dressing. Pt's boyfriend at bs.
--- NOTE | 2021-02-14 19:08 | PC.NURSE ---
Report to ELADIO Ozuna.
[2021-02-15] VITALS (7 sets, daily range): BP systolic 112–129; BP diastolic 64–77; PULSE 70–86; RESP 16–18; TEMP 36.7–37.3; O2SAT 97–99; BMI 28.1
--- NOTE | 2021-02-15 04:00 | PC.NURSE ---
NO ACUTE CHANGES FROM PREVIOUS ASSESSMENT,PT LUNGS CLEAR,RESP,EVEN AND UNLABORED,PT REPORTS PASSING A LITTLE GAS,BOWEL SOUNDS NORMAL,NO NEW DRAINAGE TO DRESSING ,AFEBRILE
--- NOTE | 2021-02-15 07:30 | PC.NURSE ---
Report received from ELADIO Ozuna
--- NOTE | 2021-02-15 10:00 | PC.NURSE ---
Pt refuses to get a bath or have her bed changed at this time. States that she may get one later when her mother is here. Instructed pt to let me know when she was ready. V/U.
--- NOTE | 2021-02-15 12:24 | P.PN_ITS ---
[facility] Anesthesia Record Part II Discharge Time: 02:05 Destination: floor PACU nurse assessment reviewed?: Yes Patient Condition:: Good Anesthesia Complications:: None Swallowing reflex intact?: Yes Cyanosis?: No Blood Pressure: 124/68 Pulse Rate: 85 Temperature: 98.4 F Mental Status: Alert & Oriented Pain level:: 0 Nausea and/or vomitting:: None Intake, IV Amount: 1,500
--- NOTE | 2021-02-15 14:37 | HMH.ACPN2 ---
Internal Medicine - PN: Subj *Date: 02/15/21 *Time: 14:37 Interval history: POD #1 exploratory laparotomy for cornual ectopic tolerating regular diet ambulating and voiding pain control sufficient Exam Vital signs and Labs for Last 24 Hours: Temp Pulse Resp BP Pulse Ox 98.4 F 85 18 124/68 97 02/15/21 12:25 02/15/21 12:25 02/15/21 12:00 02/15/21 12:25 02/15/21 12:00 I & O for Last 24 hours: Intake & Output 02/13/21 02/14/21 02/15/21 02/16/21 11:59 11:59 11:59 11:59 Intake Total 1500 / 1500 1100 / 1100 1500 / 1500 Output Total Balance 1475 / 1475 1100 / 1100 1500 / 1500 Weight 165 lb 165 lb 0.009 oz Microbiology Reports for the Last 24 Hours: Microbiology 02/14/21 09:29 Urine,Catheterized Urine Culture - Preliminary NO GROWTH AFTER 24 HOURS 02/13/21 21:17 Urine,Clean Catch Urine Culture - Preliminary Narrative: CONSTITUTIONAL: no acute distress HEENT: mucous membranes moist PULMONARY: breathing unlabored without audible wheezes CV: no tachycardia or visible JVD; normal LE peripheral pulses ABD: soft, ND; appropriately tender but no rebound/guarding SKIN: incision well approximated with no drainage, erythema or induration EXT: no edema LEs NEURO: alert/oriented, no altered mental status PSYCH: appropriate mood and demeanor Assessment and Plan (1) Ectopic Status: Acute Category: Medical Code(s): O00.90 - Unspecified ectopic without intrauterine - Assessment and plan all Dx Assessment and Plan for all problems:: routine postop care continue to advance care as tolerated anticipate discharge home tomorrow
--- NOTE | 2021-02-15 14:59 | PC.NURSE ---
Sleeping soundly at this time. Sig other awake and watching tv.
--- NOTE | 2021-02-15 16:30 | INFXCTL.NOTE ---
Pt ready to get up to shower now that her mother is present. Pt assisted up to shower and with washing off. Did not wash hair and did not want to wait for bed linens to be changed at this time before returning to bed. Fresh linens left in room for when pt is ready for bed change.
--- NOTE | 2021-02-15 17:30 | PC.NURSE ---
Medicated with 2 tylenol (650mg) PO and 2 Percocet (10mg) PO for incision pain.
--- NOTE | 2021-02-15 17:30 | PC.NURSE ---
Soiled dressing removed from incision. Incision cleansed with 1/2 strength peroxide and sterile water. Adan remained intact. No bruising, bleeding, drainage, etc noted from site. Well approximated and unremarkable. New Telfa/Tegaderm dressing applied. Tolerated well.
[2021-02-16] VITALS: BP 113/66; BP 125/74; PULSE 71; PULSE 85; RESP 18; TEMP 36.7; TEMP 36.8; O2SAT 98; O2SAT 99
[2021-02-16 04:30] VITALS: BP 119/75; PULSE 79; RESP 18; TEMP 36.9; O2SAT 99
--- NOTE | 2021-02-16 04:44 | PC.NURSE ---
PT HAS RESTED WELL THIS SHIFT AND HAS AMBULATED IN THE BATEMAN INTERMITTENTLY. MIDLINE TELFA AND TEGADERM DRESSING REMAINS CDI. NO ACUTE CHANGES FROM PREVIOUS ASSESSMENT. VS WNL. WILL CONTINUE TO MONITOR.
[2021-02-16 06:00] VITALS: BMI 28.1
--- NOTE | 2021-02-16 08:15 | PC.NURSE ---
0815 iv dc'd at this time. site wrapped with 2x2 and coban
--- NOTE | 2021-02-16 08:23 | PC.NURSE ---
DR. COOLEY AT BEDSIDE
[2021-02-16 08:25] VITALS: O2SAT 99
--- NOTE | 2021-02-16 08:55 | HMH.DCSUM ---
General - General Admission date:: 02/14/21 Discharge date: 02/16/21 HPI HPI: She is a 20-year-old 3 para 1 aborta 1 who is about 6 weeks gestational age. She came in with lower abdominal pain. Ultrasound shows that she has an ectopic at 6 weeks. She has had a previous RSO. Hospital Course Hospital Course: Postop course uneventful Discharged home on POD #2 in stable condition she is tolerating regular diet, ambulating and voiding without difficulty pain control is sufficient Rhogam Administration: Not Indicated Objective Vital signs: Temp Pulse Resp BP Pulse Ox 98.5 F 79 18 119/75 99 02/16/21 04:30 02/16/21 04:30 02/16/21 04:30 02/16/21 04:30 02/16/21 04:30 Narrative: CONSTITUTIONAL: no acute distress HEENT: mucous membranes moist PULMONARY: breathing unlabored without audible wheezes CV: no tachycardia or visible JVD; normal LE peripheral pulses ABD: soft, ND; appropriately tender but no rebound/guarding SKIN: incision well approximated with no drainage, erythema or induration EXT: no edema LEs NEURO: alert/oriented, no altered mental status PSYCH: appropriate mood and demeanor without anxiety/depression Results Labs on day of discharge: Preliminary micro results at discharge 02/13/21 21:17 Urine Culture - Preliminary Urine,Clean Catch 02/14/21 09:29 Urine Culture - Preliminary Urine,Catheterized NO GROWTH AFTER 24 HOURS DS: Diagnosis - Discharge Diagnosis (1) Ectopic Status: Acute Discharge Plan - Patient Discharge Instructions ACTIVITY: Continue current activity DIET: regular diet Additional Instructions: NOTHING IN VAGINA FOR 6 WEEKS NO HEAVY LIFTING OR STRENUOUS ACTIVITY FOLLOW-UP WITH DR. COOLEY Patient Instructions: DI for Ectopic , Surgical Site Infection, DI for Postoperative Pain, How to Care for a Surgical Wound-[place], Preventing the Spread of Coronavirus Discharge Instructions - Follow up Plan Disposition: Home, Self-Care Condition at discharge:: Stable Home Medications: Home Medications Medication Instructions Recorded Confirmed Type Ketorolac Tromethamine [Toradol 10 mg PO Q6H #30 tab 02/16/21 Rx 10mg tablet] Oxycodone HCl [OxyIR 5mg tablet] 10 mg PO Q4HP PRN #24 tablet 02/16/21 Rx Prescriptions/Medication Reconciliation: New Acetaminophen [Acetaminophen 325mg tab] 650 mg PO Q6H tablet Ketorolac Tromethamine [Toradol 10mg tablet] 10 mg PO Q6H #30 tab Oxycodone HCl [OxyIR 5mg tablet] 10 mg PO Q4HP PRN #24 tablet PRN Reason: Moderate To Severe Pain - Problem Reconciliation Problems Reviewed?: Yes
== END 2021-02-16 09:20 | disposition home or self-care (01) | DRG 819 ==
LOC: ER 22:50 → OB 02-14 01:30
PROVIDERS: Admitting Provider Nurse Practitioner Obstetrics & Gynecology; Emergency Provider Emergency Medicine; PCP Internal Medicine Adolescent Medicine; Visit Provider Nurse Practitioner Obstetrics & Gynecology
PROC: 10T20ZZ Resection of Products of Conception, Ectopic, Open Approach (ICD-10-PCS; CPT 49320; principal; 2021-02-14 23:30)
DX: O00.80 Other ectopic pregnancy without intrauterine pregnancy (principal); F32.A Depression, unspecified; K21.9 Gastro-esophageal reflux disease without esophagitis; I10 Essential (primary) hypertension; Z53.31 Laparoscopic surgical procedure converted to open procedure
CPT/HCPCS: 59136; 36415; 76830; 80048; 80053; 81001; 81025; 84702; 84703; 85007; 85025; 87086; 87088; 87186; 96365; 99284; C9803; J2405; J2710; U0003; U0005

== ENCOUNTER → 2021-02-21 10:32 | Outpatient (CLI) | payer OTHER, SELFPAY ==
[2021-02-21 11:06] LABS: Basophils # 0.1 K/mm3 (0-0.2); Eosinophils # 0.2 K/mm3 (0.0-0.4); Eosinophils % 3.3 % (0.1-12.0); Hematocrit 40.4 % (37.0-47.0); Hemoglobin 13.8 g/dL (12.2-16.2); Lymphocytes # 1.8 K/mm3 (0.7-4.5); Lymphocytes % 36.3 % (10-50); Mean Corpuscular HGB Conc 34.2 g/dL (31.8-35.4); Mean Corpuscular Volume 87.9 fl (81-99); Mean Platelet Volume 7.4 fl (7.4-10.4); Monocytes # 0.2 K/mm3 (0.1-1.0); Monocytes % 3.7 % (1.7-9.3); Neutrophils # 2.7 K/mm3 (1.8-7.8); Neutrophils % 54.8 % (37.0-80.0); Platelet Count 128 K/mm3 (142-424); Red Cell Distribution Width 14.2 % (11.5-17.5); White Blood Count 4.8 K/mm3 (4.8-10.8)
== END ==
PROVIDERS: PCP Internal Medicine Adolescent Medicine; Visit Provider Obstetrics & Gynecology
DX: Z48.89 Encounter for other specified surgical aftercare (principal)
CPT/HCPCS: 85025

== ENCOUNTER 2021-04-19 07:20 | Emergency (ER) | payer OTHER, SELFPAY ==
[2021-04-19 07:22] VITALS: BP 130/90; PULSE 121; RESP 20; TEMP 36.9; O2SAT 98; BMI 30.5
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
[2021-04-19 08:03] LABS: Urine Pregnancy, HCG Qual. Negative (Negative)
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
[2021-04-19 08:53] VITALS: BP 128/88; PULSE 108; RESP 20; TEMP 36.9; O2SAT 98
== END 2021-04-19 08:55 | disposition home or self-care (01) ==
PROVIDERS: Emergency Provider Emergency Medicine; PCP Internal Medicine Adolescent Medicine
DX: S00.83XA Contusion of other part of head, initial encounter (principal); R42 Dizziness and giddiness; Y04.2XXA Assault by strike against or bumped into by another person, initial encounter; Y92.89 Other specified places as the place of occurrence of the external cause; M79.641 Pain in right hand; F33.1 Major depressive disorder, recurrent, moderate; K21.9 Gastro-esophageal reflux disease without esophagitis
CPT/HCPCS: 73100; 73130; 81025; 99282

== ENCOUNTER 2021-07-28 15:36 | Emergency (ER) | payer OTHER, SELFPAY ==
[2021-07-28 15:45] VITALS: BP 133/86; PULSE 101; RESP 19; TEMP 36.8; O2SAT 100; BMI 24.4
--- NOTE | 2021-07-28 16:17 | HMH.EDUTC ---
[facility] Disposition Clinical Impression: Viral upper respiratory illness Disposition: Home, Self-Care Condition on Discharge: Good Instructions: DI for Viral Upper Respiratory Infection -- Adult Additional Instructions: No sign of a bacterial infection. Likely viral. Viruses can take 7-14 days to run their course. Nasal saline and bulb syringe or nose Argelia to remove nasal drainage to help with nasal congestion. Hard to eat, drink, sleep with nasal congestion so important to keep this cleaned out. Monitor temp. Tylenol or Motrin as needed for pain or fever Encourage fluids, water, Gatorade, Powerade, Pedialyte if infant/toddler/child Warm salt water gargles Warm fluids Sore throat lozenges Sleep elevated Humidifier/vaporizer Follow-up immediately for new or worsening symptoms or no noticeable improvement over the next 48-72 hours. Prescriptions: Brompheniramine/Pseudoephed/Dm [Bromfed Dm Cough Syrup] 5 ml PO Q4-6H PRN #100 ml PRN Reason: Cough Prescription Printed Referrals: Tobi Joel MD [Primary Care Provider] - Time of Disposition: 16:23 Medical Decision Making - Mayito Inquiry Pt receiving controlled substance: No Vital Signs: 07/28/21 15:45 Temperature 98.2 F Temperature Source Oral Pulse Rate [Right Brachial] 101 H Respiratory Rate 19 Blood Pressure [Right Arm] 133/86 Blood Pressure Mean [Right Arm] 101 Blood Pressure Source [Right Arm] Automatic Cuff Blood Pressure Position [Right Arm] Sitting 02 Sat by Pulse Oximetry 100 Oxygen Delivery Method Room Air - Lab Data Lab Results 07/28/21 16:01: Influenza Type A Ag Negative, Influenza Type B Ag Negative Orders (Tests/Meds): ORDERS Category Date Time Status Full Resp Panel w/COVID ([facility]) Routine Lab 07/28/21 16:21 Ordered [facility] HPI - General Chief complaint: Urgent [facility] Stated complaint: sore throat, runny nose, cough Time Seen by Provider: 07/28/21 16:17 Mode of Arrival: Ambulatory Source of Information: Patient Limitations: No Limitations Description of Symptoms (Recalled from Triage Doc. by RN): PATIENT C/O COUGH, SORE THROAT, RUNNY NOSE, EAR ACHE AND HEADACHE SINCE YESTERDAY HEENT Symptoms (Recalled from RN notes): Yes Resp Symptoms (Recalled from RN notes): Yes Skin Symptoms (Recalled from RN notes): No MS Symptoms (Recalled from RN notes): No Functional Status (Recalled from RN notes): WNL - History of Present Illness Provider Complaint: 21 yr old female presnets for cough,sore throat, runny nose, ear ache and headache since yesterday. - Related Data Previous Rx's Medication Instructions Recorded Brompheniramine/Pseudoephed/Dm 5 ml PO Q4-6H PRN #100 ml 07/28/21 [Bromfed Dm Cough Syrup] Allergies Allergy/AdvReac Type Severity Reaction Status Date / Time Sulfa (Sulfonamide Allergy Mild Verified 03/01/21 09:08 Antibiotics) - Worker's Comp Is this a Worker's Comp case?: No [facility] History - Hepatitis A Screen Drug use history?: No High risk sexual behaviors?: No History of sexually transmitted infection?: No Currently employed?: No Childcare worker?: No Do you have indoor plumbing?: Yes Do you have electricity?: Yes Attestation statement:: This patient has been screened for Hepatitis A risk factors. I have reviewed the patient's past medical history: Yes Medical History: Reports:: Depression, Gastroesophageal Reflux Disease(GERD), Hypertension, MRSA Denies:: Anxiety, Cancer, Diabetes Mellitus Type 1, Diabetes Mellitus Type 2, Internal Pacemaker, Migraine, Seizures Other Medical History: Denies: Blood Transfusion Reaction Comment: obesity, 6 weeks Laterality Cases: Bilateral: Myringotomy (Ear Tubes), Tonsillectomy Other Surgeries: Yes: Dilation and Curettage, Other. No: , Pacemaker Amputation: No Fractures: No Comment: ear tubes, right ovary and right tube removed due cyst, 10/2017. Ectopic , surgery, 02/14/21 - Social History [facility]
[2021-07-28 16:20] VITALS: BP 133/86; PULSE 101; RESP 19; TEMP 36.8; O2SAT 100
[2021-07-28 16:21] LABS: UTC Influenza A Antigen Negative (Negative); UTC Influenza B Antigen Negative (Negative)
[2021-07-28 16:30] LABS: Adenovirus,PCR Not Detected (NotDetected); Bordetella Pertussis Not Detected (NotDetected); Chlamydophila Pneumoniae, PCR Not Detected (NotDetected); Coronavirus 19, PCR Not Detected (NotDetected); Coronavirus 229E Not Detected (NotDetected); Coronavirus NL63 Not Detected (NotDetected); Coronavirus OC43 Not Detected (NotDetected); Coronovirus HKU1,PCR Not Detected (NotDetected); Human Metapneumovirus Not Detected (NotDetected); Influenza A, PCR Not Detected (NotDetected); Influenza AH1, 2009 Not Detected (NotDetected); Influenza AH1, PCR Not Detected (NotDetected); Influenza AH3,PCR Not Detected (NotDetected); Influenza B, PCR Not Detected (NotDetected); Mycoplasma Pneumoniae, PCR Not Detected (NotDetected); Parainfluenza 1, PCR Not Detected (NotDetected); Parainfluenza 2, PCR Not Detected (NotDetected); Parainfluenza 4, PCR Not Detected (NotDetected); Respiratory Syncytial Virus Not Detected (NotDetected); Rhinovirus/Enterovirus Not Detected (NotDetected)
[2021-07-28 19:00] LABS: Parainfluenza 3, PCR Detected (NotDetected)
== END 2021-07-28 16:27 | disposition home or self-care (01) ==
PROVIDERS: Emergency Provider Nurse Practitioner Family; PCP Internal Medicine Adolescent Medicine
DX: J06.9 Acute upper respiratory infection, unspecified (principal); Z20.822 Contact with and (suspected) exposure to COVID-19; I10 Essential (primary) hypertension; K21.9 Gastro-esophageal reflux disease without esophagitis; F32.A Depression, unspecified; F41.9 Anxiety disorder, unspecified; F17.210 Nicotine dependence, cigarettes, uncomplicated; Z79.52 Long term (current) use of systemic steroids; Z79.899 Other long term (current) drug therapy; Z88.2 Allergy status to sulfonamides; Z80.9 Family history of malignant neoplasm, unspecified; Z86.14 Personal history of Methicillin resistant Staphylococcus aureus infection
CPT/HCPCS: 87581; 87632; 87798; 87804; 99213; C9803; G0463; U0003; U0005

== ENCOUNTER 2021-08-03 15:57 | Emergency (ER) | payer OTHER, SELFPAY ==
[2021-08-03 16:57] VITALS: BP 115/72; PULSE 98; RESP 18; TEMP 36.8; O2SAT 97; BMI 27.1
--- NOTE | 2021-08-03 17:22 | HMH.EDUTC ---
[facility] [place] Clinical Impression: Otitis media Qualifiers: Otitis media type: suppurative Chronicity: acute Laterality: bilateral Recurrence: non-recurrent Spontaneous tympanic membrane rupture: without spontaneous rupture Qualified Code(s): H66.003 - Acute suppurative otitis media without spontaneous rupture of ear drum, bilateral Disposition: Home, Self-Care Condition on Discharge: Good Instructions: Middle Ear Infection Additional Instructions: Drink plenty of fluids. Take tylenol or ibuprofen for pain or fever. Take the medications as directed. Follow up with your regular doctor. GO TO THE ER FOR ANY WORSENING SYMPTOMS Prescriptions: Brompheniramine/Pseudoephed/Dm [Bromfed Dm Cough Syrup] 5 ml PO Q6HP PRN #240 ml PRN Reason: Cough Transmission Status: Received by [facility] Amoxicillin/Potassium Clav [Amox-Clav 875-125 mg Tablet] 1 tab PO BID #20 tab Transmission Status: Received by [facility] methylPREDNISolone [Medrol] 4 mg PO DIRECTED 6 Days #21 packet Transmission Status: Received by [facility] guaiFENesin [Mucinex 600mg tablet] 1 - 2 tab PO BIDP PRN #30 tab PRN Reason: Congestion Transmission Status: Received by [facility] Referrals: Tobi Joel MD [Primary Care Provider] - Time of Disposition: 17:46 Medical Decision Making - Medical Records Medical records reviewed: No: I reviewed the patient's medical records. - Mayito Inquiry Pt receiving controlled substance: No Vital Signs: 08/03/21 16:57 08/03/21 17:54 Temperature 98.3 F 98.3 F Temperature Source Oral Pulse Rate 98 H Pulse Rate [Left] 98 H Respiratory Rate 18 18 Blood Pressure 115/72 Blood Pressure [Right Arm] 115/72 Blood Pressure Mean [Right Arm] 86 02 Sat by Pulse Oximetry 97 - Lab Data Lab results reviewed: Yes: I reviewed the patient's lab results. [facility] - General Stated complaint: lost hearing Time Seen by Provider: 08/03/21 17:22 Mode of Arrival: Ambulatory Source of Information: Patient Limitations: No Limitations Description of Symptoms (Recalled from Triage Doc. by RN): pt c/o loss of hearing in both ears x1wk HEENT Symptoms (Recalled from RN notes): Yes Resp Symptoms (Recalled from RN notes): No Skin Symptoms (Recalled from RN notes): No MS Symptoms (Recalled from RN notes): No Functional Status (Recalled from RN notes): wnl - History of Present Illness Provider Complaint: She was diagnosed with a viral illness about 10 days ago. She states that since then she has began to have bilateral ear pain and now she has decreased hearing in her right ear. - Related Data Previous Rx's Medication Instructions Recorded Brompheniramine/Pseudoephed/Dm 5 ml PO Q4-6H PRN #100 ml 07/28/21 [Bromfed Dm Cough Syrup] Amoxicillin/Potassium Clav 1 tab PO BID #20 tab 08/03/21 [Amox-Clav 875-125 mg Tablet] Brompheniramine/Pseudoephed/Dm 5 ml PO Q6HP PRN #240 ml 08/03/21 [Bromfed Dm Cough Syrup] guaiFENesin [Mucinex 600mg tablet] 1 - 2 tab PO BIDP PRN #30 tab 08/03/21 methylPREDNISolone [Medrol] 4 mg PO DIRECTED 6 Days #21 08/03/21 packet Allergies Allergy/AdvReac Type Severity Reaction Status Date / Time Sulfa (Sulfonamide Allergy Mild Verified 03/01/21 09:08 Antibiotics) - Worker's Comp Is this a Worker's Comp case?: No [facility] History - Hepatitis A Screen Drug use history?: No High risk sexual behaviors?: No History of sexually transmitted infection?: No Currently employed?: No Childcare worker?: No Do you have indoor plumbing?: Yes Do you have electricity?: Yes Attestation statement:: This patient has been screened for Hepatitis A risk factors. I have reviewed the patient's past medical history: Yes Medical History: Reports:: Depression, Gastroesophageal Reflux Disease(GERD), Hypertension, MRSA Denies:: Anxiety, Cancer, Diabetes Mellitus Type 1, Diabetes Mellitus Type 2, Internal Pacemaker, Migraine,
[2021-08-03 17:54] VITALS: BP 115/72; PULSE 98; RESP 18; TEMP 36.8
== END 2021-08-03 17:55 | disposition home or self-care (01) ==
PROVIDERS: Emergency Provider Nurse Practitioner Family; PCP Internal Medicine Adolescent Medicine
DX: H66.003 Acute suppurative otitis media without spontaneous rupture of ear drum, bilateral (principal); H91.93 Unspecified hearing loss, bilateral; I10 Essential (primary) hypertension; K21.9 Gastro-esophageal reflux disease without esophagitis; F32.A Depression, unspecified; Z88.2 Allergy status to sulfonamides; Z86.14 Personal history of Methicillin resistant Staphylococcus aureus infection
CPT/HCPCS: 99213; G0463

== ENCOUNTER 2022-03-26 10:28 | Emergency (ER) | payer OTHER, SELFPAY ==
[2022-03-26 12:22] VITALS: BP 0/0; PULSE 0; RESP 0; TEMP -17.7; TEMP 0
== END 2022-03-26 12:23 | disposition left against medical advice (07) ==
LOC: UTC 10:32
PROVIDERS: Emergency Provider Nurse Practitioner; PCP Internal Medicine Adolescent Medicine
DX: Z53.21 Procedure and treatment not carried out due to patient leaving prior to being seen by health care provider (principal)

== ENCOUNTER 2022-04-23 16:13 | Emergency (ER) | payer OTHER, SELFPAY ==
[2022-04-23 17:00] VITALS: BP 124/69; PULSE 113; RESP 16; TEMP 37; O2SAT 98; BMI 28.5
--- NOTE | 2022-04-23 17:34 | EXP.UTC ---
Discharge Plan Disposition Patient Disposition: Home, Self-Care Condition: Good Prescriptions Prescriptions: New ondansetron 4 mg tablet,disintegrating 4 mg PO Q8H PRN (Reason: nausea and vomiting) Qty: 10 0RF No Action azithromycin [Zithromax Z-Jeanmarie] 250 mg tablet See Rx Instructions PO .COMPLEX Qty: 6 0RF Rx Instructions: For 250 mg dose pack: take 500 mg today (day 1), then 250 mg for 4 days (days 2-5) PO metronidazole 500 mg tablet 500 mg PO BID 7 Days Qty: 14 0RF Referrals Follow up/Referrals: Tobi Joel MD [Primary Care Provider] - See instructions Clinical Impressions Clinical Impression: Viral syndrome, Exposure to COVID-19 virus Stand Alone Forms Stand Alone Forms: Work/School Release Instructions Patient Instructions: DI for COVID-19 (Suspected or Confirmed ), Preventing the Spread of Coronavirus Discharge Instructions Discharge ED Provider: Brenda Mak [facility] HPI General Stated complaint: exposed to covid, JOHNSON weak V/D Mode of Arrival: Ambulatory Source of Information: Patient Limitations: No Limitations Time Seen by Provider: 04/23/22 17:34 Description of Symptoms (Recalled from Triage Doc. by RN): PATIENT C/O HEADACHE, DIARRHEA, VOMITING, AND LIGHT-HEADED HEENT Symptoms (Recalled from RN notes): Yes Resp Symptoms (Recalled from RN notes): No Skin Symptoms (Recalled from RN notes): No MS Symptoms (Recalled from RN notes): No Functional Status (Recalled from RN notes): WNL History of Present Illness Provider Complaint: Patient states that she is in a house with several people that has COVID and was around her mother that is positive for COVID States that she has been having bodyaches, chills, diarrhea and dizzy on and off same symptoms that her mother is having so she came in to get tested Related Data Previous Rx's Medication Instructions Recorded azithromycin 250 mg tablet See Rx Instructions PO .COMPLEX #6 02/04/22 (Zithromax Z-Jeanmarie) tabs metronidazole 500 mg tablet 500 mg PO BID 7 days #14 tabs 02/04/22 ondansetron 4 mg disintegrating 4 mg PO Q8H PRN nausea and 04/23/22 tablet vomiting #10 tabs Allergies Allergy/AdvReac Type Severity Reaction Status Date / Time Sulfa (Sulfonamide Allergy Mild Verified 01/30/22 14:37 Antibiotics) Worker's Comp Is this a Worker's Comp case?: No [facility] Disclaimer: The information contained in this section may have been updated after the patient was seen, as this information can be updated by other users. Medical History (Updated 04/23/22 @ 17:41 by Brenda Mak APRN) Hypertension Vaginal odor Vaginitis Surgical History (Updated 04/23/22 @ 17:11 by Fernanda Limon RN) History of cholecystectomy History of hysterectomy History of tonsillectomy History of tubal ligation History of tympanostomy tube placement Social History (Updated 04/23/22 @ 17:11 by Fernanda Limon RN) Smoking Status: Current every day smoker tobacco type: e-cigarettes second hand exposure: No alcohol intake: never substance use type: denies use current occupational status: other Travel in the last 8 weeks: None household members: significant other housing: apartment current occupational exposures/hazards: No caffeine: No ROS Obtained: Yes All systems reviewed & no additional complaints except as documented and Yes Systems reviewed as appropriate & no additional complaints except as documented Constitutional Constitutional: Reports system reviewed and no additional complaints, except as documented, Reports as per HPI, Reports body ache, Reports chills and Reports headache(s) ENT Ears, Nose, Mouth, and Throat: Reports system reviewed and no additional complaints, except as documented, Reports as per HPI and Reports headache(s) Cardiovascular Cardiovascular: Reports system reviewed and no additional complaints, except as documented and Reports as per HPI Respiratory Respiratory: Reports system
[2022-04-23 17:53] VITALS: BP 124/69; PULSE 113; RESP 16; TEMP 37; O2SAT 98
[2022-04-23 19:24] LABS: UTC Influenza A Antigen Negative (Negative); UTC Influenza B Antigen Negative (Negative)
[2022-04-23 19:24] LABS: UTC Pregnancy Test, Urine Negative (Negative)
== END 2022-04-23 17:59 | disposition home or self-care (01) ==
PROVIDERS: Emergency Provider Nurse Practitioner; PCP Internal Medicine Adolescent Medicine
DX: Z20.822 Contact with and (suspected) exposure to COVID-19 (principal); R51.9 Headache, unspecified; R53.1 Weakness; R11.2 Nausea with vomiting, unspecified; B34.9 Viral infection, unspecified
CPT/HCPCS: 81025; 87804; 99212; C9803; G0463; U0003; U0005

== ENCOUNTER 2022-06-27 13:17 | Emergency (ER) | payer OTHER, SELFPAY ==
[2022-06-27 13:18] VITALS: BP 132/91; PULSE 110; RESP 17; TEMP 36.7; O2SAT 98; BMI 28.8
--- NOTE | 2022-06-27 13:25 | HMH.EDGENADL ---
Discharge Plan Disposition Patient Disposition: Home, Self-Care Condition: Good Prescriptions Prescriptions: New hydroxyzine HCl 50 mg tablet 50 mg PO TIDP PRN (Reason: anxie) Qty: 20 0RF No Action doxycycline hyclate 100 mg tablet 100 mg PO BID Qty: 14 0RF ondansetron 4 mg tablet,disintegrating 4 mg PO Q8H PRN (Reason: nausea and vomiting) Qty: 10 0RF Activity Restrictions/Add. Instructions Additional Instructions/Restrictions: Hydroxyzine as needed for anxiety as prescribed. Follow-up with your primary care provider, call for appointment. Clinical Impressions Clinical Impression: Anxiety Instructions Patient Instructions: DI for Anxiety -- Adult Discharge ED Provider: Kermit Hammond General Adult HPI General Chief complaint: Anxiety Stated complaint: anxiety Time Seen by Provider: 06/27/22 13:20 Mode of Arrival: Ambulatory Source of Information: Patient Limitations: No Limitations Description of Symptoms (Recalled from ER Triage Doc. by RN): pt to ED with anxiety and heart palpitations since last night. pt denies any chest pain. pt reports she ran out of her anxiety medication last week History of Present Illness HPI narrative: Patient states that she came in to see if she can get a refill on her medications for anxiety. She says that she has had problems with anxiety in the past but has not had a problem for 6 months or more and then last evening began having recurrence of symptoms. She says she gets to feeling anxious associated with shortness of breath, palpitations. She is not currently symptomatic. She says she was prescribed medication by Dr. Joel's office last year, she does not remember the name, but is out. She says she filled the prescription at [place] [facility]. The patient refused any tests on arrival including EKG, refuses IV. Denies , states she took a test the other day and it was negative. Denies tobacco, alcohol, drug use, [id number] medication use, or prescription medication use. States she has no other medical conditions. Related Data Previous Rx's Medication Instructions Recorded ondansetron 4 mg disintegrating 4 mg PO Q8H PRN nausea and 04/23/22 tablet vomiting #10 tabs doxycycline hyclate 100 mg tablet 100 mg PO BID #14 tabs 05/07/22 hydroxyzine HCl 50 mg tablet 50 mg PO TIDP PRN anxie #20 tabs 06/27/22 Allergies Allergy/AdvReac Type Severity Reaction Status Date / Time Sulfa (Sulfonamide Allergy Mild Verified 05/02/22 10:00 Antibiotics) [facility] Disclaimer: The information contained in this section may have been updated after the patient was seen, as this information can be updated by other users. Medical History (Updated 06/27/22 @ 13:33 by Kermit Hammond MD) Hypertension Possible exposure to STD Vaginal odor Vaginitis Surgical History History of cholecystectomy History of hysterectomy History of tonsillectomy History of tubal ligation History of tympanostomy tube placement Social History Smoking Status: Never smoker second hand exposure: No alcohol intake: never substance use type: denies use current occupational status: other Travel in the last 8 weeks: None household members: significant other housing: apartment current occupational exposures/hazards: No caffeine: No ROS Obtained: Yes Systems reviewed as appropriate & no additional complaints except as documented Constitutional Constitutional: Denies fever(s), Denies headache(s) and Denies weakness ENT Ears, Nose, Mouth, and Throat: Denies headache(s), Denies nasal discharge and Denies sore throat Cardiovascular Cardiovascular: Denies chest pain and Reports palpitations Respiratory Respiratory: Reports shortness of breath and Denies cough Gastrointestinal Gastrointestingal: Denies abdominal pain, constipation, diarrhea or vomi
[2022-06-27 13:39] VITALS: BP 134/78; PULSE 79; RESP 17; TEMP 36.8; O2SAT 99
== END 2022-06-27 13:40 | disposition home or self-care (01) ==
PROVIDERS: Emergency Provider Emergency Medicine; PCP Internal Medicine Adolescent Medicine
DX: F41.9 Anxiety disorder, unspecified (principal); I10 Essential (primary) hypertension; Z87.42 Personal history of other diseases of the female genital tract; Z90.49 Acquired absence of other specified parts of digestive tract; Z90.710 Acquired absence of both cervix and uterus; Z98.51 Tubal ligation status
CPT/HCPCS: 99283; 99284

== ENCOUNTER 2022-11-05 06:05 | Emergency (ER) | payer SELFPAY ==
[2022-11-05 06:06] VITALS: BP 147/108; PULSE 122; RESP 20; TEMP 36.7; O2SAT 98; BMI 25.7
[2022-11-05 06:20] VITALS: BP 126/86
--- NOTE | 2022-11-05 06:42 | HMH.EDGENADL ---
Discharge Plan Disposition Patient Disposition: Home, Self-Care Condition: Fair Prescriptions Prescriptions: No Action hydroxyzine HCl 50 mg tablet 50 mg PO TIDP PRN (Reason: anxie) Qty: 20 0RF Referrals Follow up/Referrals: Tobi Joel MD [Primary Care Provider] - See instructions Clinical Impressions Clinical Impression: Encounter for medical examination with known health issues, Methamphetamine abuse Instructions Patient Instructions: Methamphetamine Print Language Print Language: Spanish Discharge ED Provider: Bridger Rodriguez General Adult HPI General Chief complaint: Medical Clearance Stated complaint: Medical Clearance Time Seen by Provider: 11/05/22 06:41 Mode of Arrival: Ambulatory Source of Information: Law Enforcement Limitations: No Limitations Description of Symptoms (Recalled from ER Triage Doc. by RN): patient to ER via police for medical clearance. Patient admits to smoking meth last night at 2300. History of Present Illness HPI narrative: Patient presents the emergency department for medical clearance. The patient was arrested this morning. Patient admits to using methamphetamine last night at 11:00. She denies using any other drugs. The patient reports that she smoked it. Patient reports that she does not use intravenous drugs. The patient denies fever, chest pain, dyspnea, or abdominal pain. MD complaint: Medical clearance Associated symptoms: other (anxiety) Related Data Previous Rx's Medication Instructions Recorded hydroxyzine HCl 50 mg tablet 50 mg PO TIDP PRN anxie #20 tabs 06/27/22 Allergies Allergy/AdvReac Type Severity Reaction Status Date / Time Sulfa (Sulfonamide Allergy Mild Verified 09/18/22 13:12 Antibiotics) [facility] Disclaimer: The information contained in this section may have been updated after the patient was seen, as this information can be updated by other users. Medical History Hypertension Possible exposure to STD , ectopic, cornual or cervical Vaginal odor Vaginitis Surgical History History of cholecystectomy History of hysterectomy History of right salpingo-oophorectomy History of tonsillectomy History of tympanostomy tube placement Social History Smoking Status: Current every day smoker tobacco type: e-cigarettes second hand exposure: No alcohol intake: never substance use type: denies use current occupational status: other Travel in the last 8 weeks: None household members: significant other housing: apartment current occupational exposures/hazards: No caffeine: No ROS Obtained: Yes Systems reviewed as appropriate & no additional complaints except as documented Neurologic Comments: anxiety Physical Exam General General appearance: in no apparent distress Eye Eye exam: Present normal appearance and EOMI; Absent conjunctival redness ENT ENT exam: Present normal exam and mucous membranes moist Respiratory Respiratory exam: Present normal lung sounds bilaterally; Absent respiratory distress Cardiovascular Cardiovascular exam: Present regular rate and normal rhythm Abdominal Exam Abdominal exam: Present soft and normal bowel sounds; Absent distention Extremities Exam Extremities exam: Present normal inspection Neurological Exam Neurological exam: Present alert and oriented X3; Absent motor sensory deficit Psychiatric Psychiatric exam: Present normal affect and normal mood Skin Skin exam: Present warm and dry Medical Decision Making Mayito Inquiry Pt receiving controlled substance: No Vital Signs: 11/05/22 06:06 11/05/22 06:20 Temperature 98.1 F Temperature Source Oral Pulse Rate [Right] 122 H Respiratory Rate 20 Blood Pressure 126/86 Blood Pressure [Right Arm] 147/108 H Blood Pressure Mean [Right Arm] 121 02 Sat by Pu
--- NOTE | 2022-11-05 06:48 | PC.NURSE ---
in room talking with patient at this time.
[2022-11-05 06:57] VITALS: BP 126/86; PULSE 102; RESP 16; TEMP 36.7; O2SAT 100
== END 2022-11-05 07:01 ==
PROVIDERS: Emergency Provider Emergency Medicine; PCP Internal Medicine Adolescent Medicine
DX: F15.10 Other stimulant abuse, uncomplicated (principal); F41.9 Anxiety disorder, unspecified; I10 Essential (primary) hypertension; F17.290 Nicotine dependence, other tobacco product, uncomplicated
CPT/HCPCS: 99282; 99283

== ENCOUNTER 2025-01-04 14:19 | Outpatient (CLI) | payer OTHER, SELFPAY ==
--- OUTSIDE RECORDS SUMMARY | 2025-01-04 14:22 | XMS_ITS | Clinical Summary ---
Author Organization Healthcare Address [address] [place] [address] Care Team Providers Care Wrapper Dipper Name Role Phone Linn Michael DO Primary Care Provider [phone] Family History Medical History Relation Name Comments Diabetes Father Hepatitis, C Virus Father Hypertension Maternal Grandmother Drug abuse Mother Rheum arthritis Other Cardiac disorder Paternal Grandmother Relation Name Status Comments Father Maternal Grandmother Mother Other Paternal Grandmother Social History Tobacco Use Types Packs/Day Years Used Date Smoking Tobacco: Never Comments Unknown Sex and Gender Information Value Date Recorded Sex Assigned at Not on file Legal Sex Female 8:47 PM EDT Gender Identity Not on file Sexual Orientation Not on file Last Filed Vital Signs Vital Sign Reading Time Taken Comments Blood Pressure 132/88 08/10/2020 10:13 AM EDT Pulse 98 08/10/2020 10:13 AM EDT Temperature - - Respiratory Rate - - Oxygen Saturation - - Inhaled Oxygen Concentration - - Weight 87 kg (191 lb 12.8 oz) 08/10/2020 10:13 A M EDT Height 162.6 cm (5' 4 ) 08/10/2020 10:13 AM EDT Body Mass Index 32.92 08/10/2020 10:13 AM EDT Plan of Treatment Upcoming Encounters Date Type Department Care Team (Late st Contact Info) Description 03/13/2025 2:30 PM EST Office Visit Medical Office Building Obstetrics and Gynecology [address], [address] [place] [address] Jenna Mendez, YARD ENGINEER [address] [place] [address] Health Maintenance Due Date Last Done Comments [facility]-Depression Screening 1999 [facility]-/Child/Adol SDOH Screenings 1999 [facility]-Hepatitis B Vaccines (3 of 3 - 3-dose series) 02/17/2001 12/23/2000, 05/20/2000 [facility]-IPV Vaccines (3 of 3 - 4-dose series) 12/21/2003 06/22/2003, 05/20/2000 [facility]- SDOH Screenings 2017 [facility]-Adult SDOH Screenings 2017 [facility]-Pap Smear 2020 [facility]-DTaP,Tdap,and Td Vaccines (4 - Td or Tdap) 12/07/2021 12/08/2011, 06/22/2003, 05/20/2000 [id number] Vaccine (2 - season) 2024 12/26/2021 [facility]-Influenza Vaccine (#1) 12/26/202403/30, 02/13/2012 [facility]-Zoster Vaccines (1 of 2) 2049, 12/23/2000 [facility]-HIB Vaccines Completed 12/23/2000, 05/20/2000 [facility]-Pneumococcal Vaccine: Pediatrics (0 to 5 Years) and At-Risk Patients (6 to 49 Years) Aged Out 12/23/2000, 05/20/2000 No longer eligible based on patient's age to complete this topic [facility]-Varicella Vaccines Completed 2, 12/23/2000 HPV Vaccines Completed 09/15/2012, 12/08/2011 [facility]-HIV Screening Completed 06/29/2020 [facility]-Hepatitis C Screening Completed 06/29/2020 [facility]-Hepatitis A Vaccines Aged Out No longer eligible based on patient's age to complete this topic [facility]-Rotavirus Vaccines Aged Out No lo nger eligible based on patient's age to complete this topic Procedures Procedure Name Priority Date/Time Associated Diagnosis Comments HEPATITIS C ANTIBODY W/REFLEX TO HCV QUANT PCR Routine 06/29/2020 4:04 PM EST HIV 1/2 ANTIBODY/ANTIGEN SCREEN WITH REFLEX TO HIV I/II DIFFERENTIATION Routine 06/29/2020 4:04 PM EST from Last 3 Months or Most Recently Relevant to Health Maintenance Results * HIV 1 & 2 Antibody/Antigen Screen (06/29/2020 4:04 PM EST) HIV 1 Result NONREACTIVE Screening for HIV 1 and 2 antibodies is NONREACTIVE. No confirmatory testing is required. SUNQUEST 06/29/2020 4:04 PM EST 06/29/2020 6:21 PM EST Linn Bruno MD LAB BLOOD ORDERABLES Final Re sult Performing Organization Address [facility] de Phone Number SUNQUEST * Hepatitis C Antibody (06/29/2020 4:04 PM EST) Hepatitis C Antibody NEGATIVE Reference Range: Negative SUNQUEST 06/29/2020 4:04 PM EST 06/29/2020 6:21 PM EST Linn Bruno MD LAB BLOOD ORDERABLES Final Re sult Performing Organization Address [facility] Co de Phone Number SUNMANUEL from Last 3 Months or Most Recently Relevant to Health Maintenance Insurance AETNA [facility] MEDICAID Care Teams Wrapper Dipper Relationship Specialty Start Date End Date Linn Michael, [address] [place] [address] [facility] - General 09/07/20
== END 2025-01-04 23:59 | disposition home or self-care (01) ==
LOC: LAB 14:19
PROVIDERS: PCP Internal Medicine Adolescent Medicine; Visit Provider Obstetrics & Gynecology
DX: Z34.90 Encounter for supervision of normal pregnancy, unspecified, unspecified trimester (principal); N92.6 Irregular menstruation, unspecified
CPT/HCPCS: 36415; 84144; 84702

== ENCOUNTER 2025-01-10 10:29 | Outpatient (CLI) | payer OTHER, SELFPAY ==
--- OUTSIDE RECORDS SUMMARY | 2024-01-20 05:30 | XMS_ITS | Continuity of Care Document ---
Author Organization [facility] Address [address] [place] [address] Phone Care Team Providers Care Call Or Contact Centre Coach Name Role Phone Keshia Sebastian APRN Unavailable [...] by intramuscular route every week - Active Cymbalta 30 mg capsule,delayed release take 1 capsule by oral route every day - Active potassium chloride ER 10 mEq tablet,extended release take 1 tablet by oral route every day with furosemide - Active furosemide 20 mg tablet take 1 tablet by oral route 2 times every day as needed 20 MG - Active Macrobid 100 mg capsule take 1 capsule b y oral route every 12 hours with food 100 MG - Active Zithromax 500 mg tablet take 2 tablets b y mouth once - Active Advance Directives Directive Yes / No Effective Date File Name No Information Encounters Encounter Description Practice Location Reason(s) For Visit Diagnoses Date Provider [facility], [address] [place], [address], [place] tel:[phone] 23 [facility] No Information 4 Romulo Schmitt . [address] [place] [address], [id number] , [place]. tel:[phone] [facility], [address] [place] [address], [address], [place] tel:[phone] [address] [place] [address] No Information 4 Romulo Schmitt . [address] [facility] [place], [place], [place], [id number] , [place]. tel:[phone] [facility], [address] [place] [address], [address], [place] tel:[phone] [address] [place] [address] Shortness of breath Dec- 4 Romulo Schmitt . [address] [place], [place], [id number] , [place]. [phone] [facility], [address] [place] [address], [address], [place] tel:[phone] [address] [place] [address] preventive exam woman (chief complaint)s welling (chief complaint) Preventative health careScreening for HIV (human immunodeficiency virus)Screening, anemia, deficiency, ironHistory of methamphetamine abusePeripheral edemaScreening for thyroid disorderEncounter for vitamin deficiency screeningNeed for hepatitis C screening testScreening for diabetes mellitusScreening for lipid disordersShortness of breathBurning sensation of feet 4 Romulo Spicerndra . [address] [place], [place], [id number] , [place]. [phone] [facility], [address] [place] [address], [address], [place] tel:[phone] [address] [place] [address] vaginal discharge (chief complaint) Obesity, unspecifiedDietary counseling and surveillancePrescribed Activity/Exercise CounselingAcute UTI (urinary tract infection)Vaginal discharge 4 Romulo Spicerndra . [address] [place], [place], [id number] , [place]. tel:[phone] Family History Family Member Type Diagnosis Age At Onset No Information Payers Payer name Insurance type Covered libertarian ID Gabrielaa lorena(s) Jose Antoniotkayley [employer] [facility] [place] Medicaid MC [id number] Social History Type Description Quantity Date [...] due Goal PAP. Due on due Goal Dietary management education , guidance, and counseling completed Goal Tobacco cessation counseling completed Referral Ordered: X-RAY EXAM CHEST 2 VIEWS ordered History Of Present Illness Encounter Date Complaint History Of Prese nt Illness swelling The swelling occ urred 1 week [...] in 2-3 months after entering into rehab.. preventive exam woman The client states using [...] is daily. The client does use tobacco. vaginal discharge Her symptoms b trung 2months [...] been incarcerated since and now living at [facility]. Instructions Date Instruction Additional Infor [...]
--- OUTSIDE RECORDS SUMMARY | 2025-01-10 10:52 | XMS_ITS | Clinical Summary ---
Author Organization Healthcare Address [address] [place] [address] Care Team Providers Care Community Relations Manager Name Role Phone Linn Michael DO Primary Care Provider +1- [phone] Family History Medical History Relation Name Comments [...] Upcoming Encounters Date Type Department Care Team ([facility] st Contact Info) Description 03/13/2025 2:30 PM EST Office Visit Medical Office Building Obstetrics and Gynecology [address], [address] [place] [address] Jenna Mendez APRN [address] [place] [address] Health Maintenance Due Date Last Done Comments [facility]-Depression Screening 1999 [facility]-/Child/Adol SDOH Screenings 1999 [facility]-Hepatitis B Vaccines (3 of 3 - 3-dose series) 02/17/2001 12/23/2000, 05/20/2000 [facility]-IPV Vaccines (3 of 3 - 4-dose series) 12/21/2003 06/22/2003, 05/20/2000 [facility]- SDOH Screenings 2017 [facility]-Adult SDOH Screenings 2017 [facility]-Pap Smear 2020 [facility]-DTaP,Tdap,and Td Vaccines (4 - Td or Tdap) 12/07/2021 12/08/2011, 06/22/2003, 05/20/2000 [id number] Vaccine (2 - season) 2024 12/26/2021 [facility]-Influenza [...] ORDERABLES Final Re sult Performing Organization Address City/[facility] Co de Phone Number SUNQUEST * Hepatitis C Antibody (06/29/2020 4:04 PM EST) Pathologist [facility] Hepatitis C Antibody NEGATIVE Reference Range: Negative SUNQUEST 06/29/2020 4:04 PM EST 06/29/2020 6:21 PM EST Linn Bruno MD LAB BLOOD ORDERABLES Final Re sult Performing Organization Address City/State/[facility] Co de Phone Number SUNQUEST from Last 3 Months or Most Recently Relevant to Health Maintenance Insurance AETNA [facility] MEDICAID Care Teams Community Relations Manager Relationship Specialty Start Date End Date Linn Michael DO [address] [place] [address] [facility] - General 09/07/20
== END 2025-01-10 23:59 | disposition home or self-care (01) ==
LOC: LAB 10:30
PROVIDERS: PCP Internal Medicine Adolescent Medicine; Visit Provider Nurse Practitioner Obstetrics & Gynecology
DX: Z34.90 Encounter for supervision of normal pregnancy, unspecified, unspecified trimester (principal); N92.6 Irregular menstruation, unspecified; Z3A.00 Weeks of gestation of pregnancy not specified
CPT/HCPCS: 36415; 84702

== ENCOUNTER 2025-01-16 13:28 | Outpatient (CLI) | payer OTHER, SELFPAY ==
--- OUTSIDE RECORDS SUMMARY | 2024-01-20 05:30 | XMS_ITS | Continuity of Care Document ---
Author Organization [facility] Address [address] [place] [address] Phone Care Team Providers Care Heel Shaver Name Role Phone Keshia Sebastian APRN Unavailable Unavaila ble Allergies, Adverse Reactions, Alerts Substance Reaction Status Criticality Sulfa (Sulfonamide Antibiotics) Active No Information Medications Medication Instructions Dosage Effective Dates (start - stop) Status Comments cholecalciferol (vitamin D3) 1,250 mcg (50,000 unit) capsule take 1 capsule by oral route every week 1250 MCG - Active Physicians EZ Use B-12 1,000 mcg/mL injection kit inject 1 milliliter by intramuscular route every week - Active furosemide 20 mg tablet take 1 tablet by oral route 2 times every day as needed 20 MG - Active Cymbalta 30 mg capsule,delayed release take 1 capsule by oral route every day - Active potassium chloride ER 10 mEq tablet,extended release take 1 tablet by oral route every day with furosemide - Active Macrobid 100 mg capsule take 1 capsule b y oral route every 12 hours with food 100 MG - Active Zithromax 500 mg tablet take 2 tablets b y mouth once - Active Advance Directives Directive Yes / No Effective Date File Name No Information Encounters Encounter Description Practice Location Reason(s) For Visit Diagnoses Date Provider [facility], [address] [place], [address], [place] tel:[phone] 23 [facility] No Information 4 Romulo Schmitt . [address] [place] [address], [id number] , [place]. tel:[phone] [facility], [address] [place] [address], [address], [place] tel:[phone] [address] [place] [address] No Information 4 Romulo Schmitt . [address] [facility], [place], [place], [id number] , [place]. tel:[phone] [facility], [address] [place] [address], [address], [place] tel:[phone] [address] [place] [address] Shortness of breath Dec- 4 Romulo Schmitt . [address] [place], [place], [id number] , [place]. [phone] [facility], [address] [place] [address], [address], [place] tel:[phone] [address] [place] [address] preventive exam woman (chief complaint)s welling (chief complaint) Preventative health careScreening for HIV (human immunodeficiency virus)Screening, anemia, deficiency, ironHistory of methamphetamine abusePeripheral edemaScreening for thyroid disorderEncounter for vitamin deficiency screeningNeed for hepatitis C screening testScreening for diabetes mellitusScreening for lipid disordersShortness of breathBurning sensation of feet 4 Romulo Spicerndra . [address] [place], [place], [id number] , [place]. [phone] [facility], [address] [place] [address], [address], [place] tel:[phone] [address] [place] [address] vaginal discharge (chief complaint) Obesity, unspecifiedDietary counseling and surveillancePrescribed Activity/Exercise CounselingAcute UTI (urinary tract infection)Vaginal discharge 4 Romulo Spicerndra . [address] [place], [place], [id number] , [place]. tel:[phone] Family History Family Member Type Diagnosis Age At Onset No Information Payers Payer name Insurance type Covered democrat ID Gabrielaa lorena(s) Jose Antoniotkayley [facility] [place] Medicaid [id number] Social History Type Description Quantity Date Captured Comments Sex Female Smoking Status No Information Chief Complaint And Reason For Visit No Information Plan Of Treatment Date Type Action Status Goal HIV screen. Due on due Goal Preventive Visit. Due on Dec due Goal PAP. Due on due Goal Depression screening. Due on due Goal HIV screen. Due on due Goal Depression screening. Due on due Goal Preventive Visit. Due on Dec due Goal PAP. Due on due Goal Depression screening. Due on due Goal Preventive Visit. Due on Oct due Goal PAP. Due on due Goal Tobacco cessation counseling completed Goal Dietary management education , guidance, and counseling completed Referral Ordered: X-RAY EXAM CHEST 2 VIEWS ordered History Of Present Illness Encounter Date Complaint History Of Prese nt Illness preventive exam woman The client states using abstinence for control. Negative for: breast discharge, breast lump(s) and breast pain. Positive for: breast self exam. Menopausal symptoms negative for: hot flashes, insomnia, night sweats and vaginal dryness. Associated symptoms include anxiety and depression. Pertinent negatives include abnormal bleeding (hematology), abnormal vaginal bleeding, decreased libido, difficulty falling sleep, dyspareunia, history of infertility, nocturia, sexual dysfunction, sleep disturbances, urinary incontinence, urinary urgency, vaginal discharge and vaginal itching. Client does not take calcium. Client does not take Vitamin D. Client does not take multivitamins. Client does not take Folic acid.The client states Client's exercise level is moderate and frequency is daily. The client does use tobacco. swelling The swelling occ urred 1 week ago. The client has aching and burning swelling in the bilateral foot. The swelling is aggravated by exercise, standing and walking. Interventions the client has tried have not provided any relief. The swelling is associated with dyspnea, joint pain and weight gain. The client denies any appetite change, easy bleeding, blistering, bruising, chest pain, decreased mobility, diaphoresis, fatigue, fever, generalized weakness, headache, lymphadenopathy, malaise, myalgia, numbness, paroxysmal nocturnal dyspnea, pruritus, purulent drainage, rash, skin discoloration, warmth and weight loss. Additional information: States she has gained 70 pounds in 2-3 months after entering into rehab.. vaginal discharge Her symptoms b trung 2months ago. Presently the client is experiencing vaginal itching, vaginal irritation and vaginal discharge. Color is green.The client has a history of chlamydia. Her symptoms are not relieved by anything. Her symptoms are associated with dysuria but she denies fever, genital lesions, genital rash or genital ulcers. Additional information: Last sexual partner 2-3 months ago. Has been incarcerated since and now living at [facility]. Instructions Date Instruction Additional Infor mation RX as directed Related to Burni ng sensation of feet Chest xray orderedRT C with unimproved symptoms or seek emergency treatment. Related to Shortness of breath Monitor BP regularly Monitor sodium intakeRX as directedRTC with unimproved symptoms Related to Peripheral edema Encouraged healthy l ow sodium, low fat, low cholesterol diet, exercise 3-4 times weekly, and regular sleep schedule. Encouraged safe sexual practices. Discussed age related safety issues.Encouraged yearly eye exam and dental exams. Related to Preventative health care Will proceed with ST I treatment due to history and symptomsIM injection RX as directed Related to Vaginal discharge RX as directedIncrea se fluidsWipe front to back Avoid bathsRTC with unimproved symptoms Related to Acute UTI (urinary tract infection) Prescribed activity/exercise edu cation Related to Prescribed Activity/Exercise Counseling Dietary management e ducation, guidance, and counseling Related to Dietary Surveillance and Counseling Assessments Type Assessment Date No Information
--- OUTSIDE RECORDS SUMMARY | 2025-01-16 13:30 | XMS_ITS | Clinical Summary ---
Author Organization Healthcare Address [address] [place] [address] Care Team Providers Care Regulatory Affairs Coordinator Name Role Phone Linn Michael DO Primary Care Provider +1- [phone] Family History Medical History Relation Name Comments [...] Upcoming Encounters Date Type Department Care Team ([facility] st Contact Info) Description 02/07/2025 1:45 PM EDT Initial Medical Office Building Obstetrics and Gynecology [address], [address] [place] [address] Anna Garza, APPLIED ANTHROPOLOGIST, DNP [address] [place] [address] Health Maintenance Due Date Last Done Comments [facility]-Depression Screening 1999 [facility]-/Child/Adol SDOH Screenings 1999 [facility]-Hepatitis B Vaccines (3 of 3 - 3-dose series) 02/17/2001 12/23/2000, 05/20/2000 [facility]-IPV Vaccines (3 of 3 - 4-dose series) 12/21/2003 06/22/2003, 05/20/2000 [facility]- SDOH Screenings 2017 [facility]-Adult SDOH Screenings 2017 [facility]-Pap Smear 2020 [facility]-DTaP,Tdap,and Td Vaccines (4 - Td or Tdap) 12/07/2021 12/08/2011, 06/22/2003, 05/20/2000 [id number] Vaccine (2 - season) 2024 12/26/2021 [facility]-Influenza [...] ORDERABLES Final Re sult Performing Organization Address City/[facility] Co de Phone Number SUNQUEST * Hepatitis C Antibody (06/29/2020 4:04 PM EST) Hepatitis C Antibody NEGATIVE Reference Range: Negative SUNQUEST 06/29/2020 4:04 PM EST 06/29/2020 6:21 PM EST Linn Bruno MD LAB BLOOD ORDERABLES Final Re sult Performing Organization Address City/[facility] Co de Phone Number SUNQUEST from Last 3 Months or Most Recently Relevant to Health Maintenance Insurance AETNA [facility] MEDICAID Care Teams Regulatory Affairs Coordinator Relationship Specialty Start Date End Date Linn Michael DO [address] [place] [address] [facility] - General 09/07/20
--- NOTE | 2025-01-16 13:36 | US_ITS ---
PROCEDURE: US OB TRANSVAGINAL CLINICAL INDICATION: dates.viability.location COMPARISON: No exams were available for comparison FINDINGS: Transvaginal sonographic images of the pelvis were obtained. From her last menstrual period she is 5weeks 2days. An intrauterine gestational sac is present with a pole with a crown-rump length of 0.24cm This correlates to a gestational age of 5weeks 6days. heart tones are not yet present. Yolk sac is noted. The yolk sac measures 4.1mm. The right ovary is surgically absent. The left ovary is seen and appears normal. There is a corpus luteum measuring 2.5 cm seen in the left ovary. There is a trace amount of fluid adjacent to the left ovary. There is trace fluid in the cul-de-sac. IMPRESSION: 1. Gestational sac, yolk sac seen within the endometrial cavity. A small embryo is seen but no heart rate activity is present yet. Suggest repeat scan in 1 week. 2. The right ovary is surgically absent. There is a corpus luteum in the left ovary. 3. There is trace fluid in the cul-de-sac and a trace amount of fluid adjacent to the left ovary. Dictated by: David Chowdary MD 01/17/2025 07:12 David Chowdary MD in OV 01/17/2025 07:12
== END 2025-01-16 23:59 | disposition home or self-care (01) ==
LOC: RAD 13:29
PROVIDERS: PCP Internal Medicine Adolescent Medicine; Visit Provider Obstetrics & Gynecology
DX: O34.81 Maternal care for other abnormalities of pelvic organs, first trimester (principal); O36.80X0 Pregnancy with inconclusive fetal viability, not applicable or unspecified; N83.12 Corpus luteum cyst of left ovary; Z3A.01 Less than 8 weeks gestation of pregnancy; Z90.721 Acquired absence of ovaries, unilateral
CPT/HCPCS: 76817

== ENCOUNTER 2025-01-20 19:39 | Emergency (ER) | payer OTHER, SELFPAY ==
[2025-01-20 20:05] VITALS: BP 124/82; PULSE 71; RESP 16; TEMP 36.4; O2SAT 96; BMI 31.4
--- OUTSIDE RECORDS SUMMARY | 2025-01-20 20:14 | XMS_ITS | Clinical Summary ---
Author Organization Healthcare Address [address] [place] [address] Care Team Providers Care Blacktop Spreader Name Role Phone Linn Michael DO Primary Care Provider +1- [phone] Family History Medical History Relation Name Comments [...] Upcoming Encounters Date Type Department Care Team ([facility] st Contact Info) Description 02/07/2025 1:45 PM EDT Initial Medical Office Building Obstetrics and Gynecology [address] [facility], [address] [place] [address] Anna Garza, WEDDING CAKE DESIGNER, DNP [address] [facility] [facility] [address] [place] [address] Health Maintenance Due Date Last Done Comments [facility]-Depression Screening 1999 [facility]-/Child/Adol SDOH Screenings 1999 [facility]-Hepatitis B Vaccines (3 of 3 - 3-dose series) 02/17/2001 12/23/2000, 05/20/2000 [facility]-IPV Vaccines (3 of 3 - 4-dose series) 12/21/2003 06/22/2003, 05/20/2000 [facility]- SDOH Screenings 2017 [facility]-Adult SDOH Screenings 2017 [facility]-Pap Smear 2020 [facility]-DTaP,Tdap,and Td Vaccines (4 - Td or Tdap) 12/07/2021 12/08/2011, 06/22/2003, 05/20/2000 [id number] Vaccine (2 - season) 2024 12/26/2021 [facility]-Influenza [...] ORDERABLES Final Re sult Performing Organization Address City/[facility] Co de Phone Number SUNQUEST * Hepatitis C Antibody (06/29/2020 4:04 PM EST) Hepatitis C Antibody NEGATIVE Reference Range: Negative SUNQUEST 06/29/2020 4:04 PM EST 06/29/2020 6:21 PM EST Linn Bruno MD LAB BLOOD ORDERABLES Final Re sult Performing Organization Address City/[facility] Co de Phone Number SUNQUEST from Last 3 Months or Most Recently Relevant to Health Maintenance Insurance AETNA [facility] MEDICAID Care Teams Blacktop Spreader Relationship Specialty Start Date End Date Linn Michael DO [address] [place] [address] [facility] - General 09/07/20
--- NOTE | 2025-01-20 21:18 | HMH.EDGENADL ---
Discharge Plan Disposition Patient Disposition: Home, Self-Care Condition: Good Prescriptions Prescriptions: New cephalexin 500 mg capsule 500 mg PO Q6H 7 Days Qty: 28 0RF No Action fluconazole 150 mg tablet 150 mg PO Q3D Qty: 2 0RF Rx Instructions: Take one tablet now wait 3 days (72hrs) then take second tablet if still having symptoms Referrals Follow up/Referrals: Provider,Referral, MD [Primary Care Provider, Medical] - See instructions Activity Restrictions/Add. Instructions Additional Instructions/Restrictions: Take the antibiotic as prescribed for 7 days. Follow-up with your ORDERLY as needed. Return to the emergency department for unable to tolerate oral intake. Clinical Impressions Clinical Impression: Urinary tract infection during , Acute hypokalemia, Vomiting Stand Alone Forms Stand Alone Forms: Work/School Release Instructions Patient Instructions: DI for Diarrhea and Traveler's Diarrhea -- Adult, DI for Diarrhea and Traveler's Diarrhea -- Child, DI for Nausea -- Adult, DI for Nausea -- Child Print Language Print Language: Nepalese Discharge ED Provider: Bree Macias Adult HPI General Chief complaint: Nausea/Vomiting/Diarrhea Stated complaint: diarrhea, headaches, 6 wks Time Seen by Provider: 01/20/25 21:17 Mode of Arrival: Ambulatory Source of Information: Patient Description of Symptoms (Recalled from ER Triage Doc. by RN): Pt presents with complaints of N/V/d that began approx 4 days ago. Pt reports to not being able to keep anything down, reports to being approx 6 week preg. . LMP 8/15. Pt reports associated dizziness when she wakes up, reports fever that lasted the first 2 days of sickness with recent sick contact.s History of Present Illness HPI narrative: Patient is an otherwise healthy 24-year-old female who 6 weeks . Followed with OB and has had an ultrasound done to confirm IUP presents to the emergency department with nausea vomiting diarrhea. Patient states that symptoms started about 4 days ago. Patient states that she has not had about 4 episodes of nonbloody diarrhea. Patient states diarrhea is resolved and patient has had some vomiting. Patient describes it as feeling nauseous. Patient reports decreased oral intake. Patient denies any upper respiratory symptoms. Patient denies any chest pain or shortness of breath. Patient denies any abdominal pain, abdominal cramping vaginal bleeding. Patient denies any urinary symptoms. Patient denies any headache or vision changes. Associated symptoms: chest pain Related Data Previous Rx's ?Medication ?Instructions ?Recorded fluconazole 150 mg tablet 150 mg PO Q3D 2 doses #2 tabs 10/10/24 cephalexin 500 mg capsule 500 mg PO Q6H 7 days #28 caps 01/20/25 Allergies Allergy/AdvReac Type Severity Reaction Status Date / Time Sulfa (Sulfonamide Allergy Mild Verified 10/10/24 18:06 Antibiotics) [facility] Disclaimer: The information contained in this section may have been updated after the patient was seen, as this information can be updated by other users. Medical History (Updated 01/20/25 @ 23:20 by Bree Macias DO) Encounter for supervision of other normal , first trimester , ectopic, cornual or cervical Possible exposure to STD Hypertension Vaginal odor Vaginitis Surgical History History of right salpingo-oophorectomy History of tympanostomy tube placement History of tonsillectomy History of hysterectomy History of cholecystectomy Social History Smoking Status: Current every day smoker tobacco type: e-cigarettes second hand exposure: No alcohol intake: never substance use type: denies use current occupational status: other Travel in the last 8 weeks?: None household members: significant other housing: apartment current occupational exposures/hazards: No caffeine: No Have you lived/traveled outside US in past 30 days?: No Contact w/someone who lives/traveled outside US past 30 days?: No Exposure to someone with infectious disease in past 14 days?: No Do you have a fever (greater than 100.4 F or 38 C)?: No Have you tested positive for COVID-19?: No Exposed to someone with COVID-19 in past 14 days?: No Do you have a sore throat?: No Do you have a cough?: No Do you have any weakness?: No Do you have any diarrhea?: No Are you experiencing any unusual bleeding?: No Do you have any muscle aches/pain?: No Do you have any abdominal pain?: No Are you experiencing loss of taste or smell?: No Other Medical History Have you received the Flu Vaccine for this season: No Have you received the Pneumonia Vaccine: No ROS Obtained: Yes All systems reviewed & no additional complaints except as documented and Yes Systems reviewed as appropriate & no additional complaints except as documented Physical Exam General General appearance: alert and in no apparent distress Head Head exam: atraumatic, normocephalic and normal inspection Eye Eye exam: Present normal appearance, PERRL and EOMI; Absent scleral icterus ENT ENT exam: Present normal exam and normal external ear exam Neck Neck exam: Present normal inspection and full ROM Chest Chest inspection: Present normal inspection and symmetric chest wall rise Respiratory Respiratory exam: Present normal lung sounds bilaterally; Absent respiratory distress or wheezes Cardiovascular Cardiovascular exam: Present regular rate, normal rhythm and normal heart sounds Abdominal Exam Abdominal exam: Present soft and distention; Absent tenderness, guarding or rebound Extremities Exam Extremities exam: Present normal inspection and full ROM Back Exam Back exam: Present normal inspection and full ROM Neurological Exam Neurological exam: Present alert and oriented X3 Psychiatric Psychiatric exam: Present normal affect and normal mood Skin Skin exam: Present warm and dry Medical Decision Making Medical Records Medical records reviewed: Yes I reviewed the patient's medical records. Screening: Per USPSTF and CDC recommendations, given the prevalence of disease in our region, it is our hospital?s policy to screen for HIV and viral Hepatitis for all patients aged 18 and over and those with ongoing risk factors. Mayito Inquiry Pt receiving controlled substance: No Vital Signs: 01/20/25 20:05 01/20/25 23:24 Temperature 97.5 F L 98.1 F Temperature Source Temporal Artery Scan Oral Pulse Rate 86 Pulse Rate [Radial] 71 Respiratory Rate 16 17 Blood Pressure 118/83 Blood Pressure [Right Arm] 124/82 Blood Pressure Mean [Right Arm] 96 Blood Pressure Source Automatic Cuff Blood Pressure Position Sitting Blood Pressure Position [Right Arm] Sitting 02 Sat by Pulse Oximetry 96 Oxygen Delivery Method Room Air Room Air Lab Data Lab results reviewed: Yes I reviewed the patient's lab results. Lab Results 01/20/25 21:55: WBC 8.9, RBC 4.85, Hgb 14.4, Hct 41.0, MCV 84.5, MCH 29.7, MCHC 35.1, RDW 12.5, Plt Count 238, MPV 9.3, Neut % (Auto) 67.4, Lymph % (Auto) 25.8, [place] % (Auto) 4.3, Eos % (Auto) 1.6, Baso % (Auto) 0.7, Neut # (Auto) 6.0, Lymph # (Auto) 2.3, [place] # (Auto) 0.4, Eos # (Auto) 0.1, Baso # (Auto) 0.1, Sodium 135 L, Potassium 3.3 L, Chloride 104, Carbon Dioxide 21 L, Anion Gap 13.3, BUN 10, Creatinine 0.70, Estimated Creat Clear 166, Estimated GFR 102, Est GFR ( Amer) 123, Glucose 87, Calcium 9.4, Total Bilirubin 0.6, AST 24, ALT 23, Alkaline Phosphatase 69, Total Protein 7.2, Albumin 4.2, Globulin 3.0, Albumin/Globulin Ratio 1.4, HCG, Quant 45709 H, Chlamy pneumoniae PCR Not detected, Adenovirus (PCR) Not detected, B. pertussis DNA (PCR) Not detected, Coronavirus OC43 (PCR) Not detected, Coronavirus HKU1 (PCR) Not detected, Coronavirus 229E (PCR) Not detected, SARS-CoV-2 (PCR) Not detected, Coronavirus NL63 (PCR) Not detected, HCV Ab RAGHAV w/Rflx PCR Qn Negative, HIV Ag/Ab Combo Qual Negative, Human Metapneumovir PCR Not detected, Influenza A (H1) PCR Not detected, Influ A (H1N1/09) PCR Not detected, Influenza A (H3) PCR Not detected, Influenza Type A (PCR) Not detected, Influenza Type B (PCR) Not detected, M. pneumoniae (PCR) Not detected, Parainfluenza 1 (PCR) Not detected, Parainfluenza 2 (PCR) Not detected, Parainfluenza 3 (PCR) Not detected, Parainfluenza 4 (PCR) Not detected, RSV (PCR) Not detected, Entero/Rhino (PCR) Not detected 01/20/25 22:15: Urine Color Yellow, Urine Appearance Sl cloudy, Urine pH 5.5, Ur Specific [place] 1.025, Urine Protein Negative, Urine Glucose (UA) Negative, Urine Ketones Negative, Urine Blood Negative, Urine Nitrate Negative, Urine Bilirubin Negative, Urine Urobilinogen 0.2, Ur Leukocyte Esterase 1+ A, Urine RBC 10-20, Urine WBC Tntc, Ur Squamous Epith Cells 20-50, Urine Bacteria 4+, Urine Mucus 2+ 01/20/25 21:55 01/20/25 21:55 Orders (Tests/Meds): ED MEDICATIONS Discontinued Medications Generic Name Dose Route Start Last Admin Trade Name Satish PRN Reason Stop Dose Admin Sodium Chloride 1,000 mls @ 999 mls/hr 01/20/25 21:33 01/20/25 23:40 Sod Chlor 0.9% 1000ml Bag IV 01/20/25 22:33 Infused .Q1H1M ONE Infusion Ceftriaxone Sodium 2 gm/ 100 mls @ 200 mls/hr 01/20/25 23:00 01/20/25 23:40 Sodium Chloride IV 01/30/25 22:59 Infused Q24H LIBAN Infusion Metoclopramide HCl 10 mg 01/20/25 21:33 01/20/25 22:01 Metoclopramide Hcl 10mg/2ml Vial IVP 01/20/25 21:34 10 mg ONCE ONE Administration Potassium Chloride 40 meq 01/20/25 22:47 01/20/25 22:58 Potassium Chloride 20meq Tab PO 01/20/25 22:48 40 meq ONCE ONE Administration ORDERS Category Date Time Status CBC w/Auto Diff [Complete Blood Count Auto Diff] Stat Lab 01/20/25 21:55 Completed CMP [Comprehensive Metabolic Panel] Stat Lab 01/20/25 21:55 Completed Full Resp Panel w/COVID ([facility]) Routine Lab 01/20/25 21:55 Completed HCG,Quantitative Stat Lab 01/20/25 21:55 Completed HIV Combo Stat Lab 01/20/25 21:55 Completed Hepatitis C Ab Qual. W/ RFX Stat Lab 01/20/25 21:55 Completed UA [Urinalysis and Microscopic] Stat Lab 01/20/25 22:15 Completed Urine Culture Stat Micro 01/20/25 22:15 Completed Medical Decision Narrative: Patient is an otherwise healthy 24-year-old female who is currently 6 weeks. Who presented to the emergency department with nausea vomiting diarrhea. On arrival, patient was hemodynamically stable with unremarkable vital signs. Differential includes but not limited to: Viral gastroenteritis, upper respiratory infection UTI, dehydration, miscarriage. Patient has not had any vaginal bleeding regularly states that this is a previous complaints. Patient has no abdominal tenderness therefore low concern for intra-abdominal process at this time. Labs reviewed and interpreted by myself: CBC showed no leukocytosis, hemoglobin is stable. CMP was only notable for mild hypokalemia. Beta-hCG appropriately. Patient was given IV fluids and IV antiemetics. Patient's UA was grossly infected with too numerous white blood cells as well. Patient was given a dose of Rocephin in the emergency department. At this time, patient is able to tolerate oral intake, patient felt improved. The patient is appropriate for discharge home. Return precautions were discussed the patient was discharged home in stable condition advised to follow-up with OB as scheduled. Critical Care Critical Care Time Critical Care Time: No
[2025-01-20] MEDS: 0.9 % SODIUM CHLORIDE 1000ML 1,000 ML 999 ML IV (22:01)
[2025-01-20] MEDS: METOCLOPRAMIDE HCL 10MG/2ML VIAL 10 MG IVP (22:01)
[2025-01-20 22:13] LABS: Adenovirus,PCR Not Detected (NotDetected); Chlamydophila Pneumoniae, PCR Not Detected (NotDetected); Coronavirus 19, PCR Not Detected (NotDetected); Coronovirus HKU1,PCR Not Detected (NotDetected); Influenza A, PCR Not Detected (NotDetected); Influenza AH1, 2009 Not Detected (NotDetected); Influenza AH1, PCR Not Detected (NotDetected); Influenza AH3,PCR Not Detected (NotDetected); Influenza B, PCR Not Detected (NotDetected); Mycoplasma Pneumoniae, PCR Not Detected (NotDetected); Parainfluenza 1, PCR Not Detected (NotDetected); Parainfluenza 2, PCR Not Detected (NotDetected); Parainfluenza 3, PCR Not Detected (NotDetected); Parainfluenza 4, PCR Not Detected (NotDetected)
[2025-01-20 22:19] LABS: Microscopic, Urine URINE MICROSCOPIC (MICROSCOPIC)
[2025-01-20 22:20] LABS: Bilirubin,Urine Negative (Negative); Color,Urine YELLOW (Yellow); Glucose,Urine (UA) Negative (Negative); Ketones,Urine Negative (Negative); Leukocyte Esterase,Urine 1+ (Negative); PH,Urine 5.5 (5.0-8.5); Protein,Urine Negative (Negative); Specific Gravity, Urine 1.025 (1.005-1.030); Urobilinogen,Urine 0.2 EU/dl (0.2)
[2025-01-20 22:25] LABS: Alanine Aminotransferase 23 U/L (12-78); Albumin Level 4.2 g/dl (3.5-5.0); Albumin/Globulin Ratio 1.4 (1.1-1.8); Alkaline Phosphatase 69 U/L (38-126); Anion Gap 13.3 mEq/L (5-15); Aspartate Amino Transferase 24 U/L (14-36); Bilirubin,Total 0.6 mg/dl (0.2-1.3); Blood Urea Nitrogen 10 mg/dl (7-17); Calcium 9.4 mg/dl (8.4-10.2); Carbon Dioxide 21 mmol/L (22.0-30.0); Chloride 104 mmol/L (98-107); Creatinine Clearance Estimated 166 mL/min (50-200); Creatinine,Serum 0.70 mg/dl (0.52-1.04); Estimated Glomerular Filt Rate 102 ml/min (>60); GFR (African American) 123 ML/MIN (>60); Globulin 3.0 g/dL (1.3-3.2); Glucose 87 mg/dl (74-100); Hematocrit 41.0 % (37.0-47.0); Hemoglobin 14.4 g/dL (12.2-16.2); Immature Granulocytes % 0.2 %; Mean Corpuscular HGB Conc 35.1 g/dL (31.8-35.4); Mean Corpuscular Hemoglobin 29.7 pg (27.0-31.2); Mean Corpuscular Volume 84.5 fl (81-99); Nucleated Red Blood Cells % 0 %; Platelet Count 238 K/mm3 (142-424); Potassium 3.3 mmoL/L (3.5-5.1); Red Blood Count 4.85 M/mm3 (4.20-5.40); Red Cell Distribution Width-SD 38.3 fL; Sodium 135 mmol/L (136-145); Total Protein,Serum 7.2 g/dl (6.3-8.2); White Blood Count 8.9 K/mm3 (4.8-10.8)
[2025-01-20 22:43] LABS: Bacteria,Urine 4+ /lpf; Mucus,Urine 2+ /lpf; Squamous Epithelial Cell,Urine 20-50 #/hpf (0-5); WBC,Urine TNTC #/hpf (0-3)
[2025-01-20] MEDS: POTASSIUM CHLORIDE 20MEQ TAB 40 MEQ PO (22:58)
[2025-01-20 23:24] VITALS: BP 118/83; PULSE 86; RESP 17; TEMP 36.7; O2SAT 99
[2025-01-20 23:35] LABS: Hepatitis C Ab Qual. W/ RFX NEGATIVE (Negative)
== END 2025-01-20 23:40 | disposition home or self-care (01) ==
PROVIDERS: Emergency Provider Student in an Organized Health Care Education/Training Program
DX: O21.9 Vomiting of pregnancy, unspecified (principal); E87.6 Hypokalemia; O23.41 Unspecified infection of urinary tract in pregnancy, first trimester; N39.0 Urinary tract infection, site not specified; Z3A.01 Less than 8 weeks gestation of pregnancy
CPT/HCPCS: 0223U; 80053; 81001; 84702; 85025; 86803; 87086; 87389; 96361; 96365; 96375; 99284; J0696; J2765; J7030

== ENCOUNTER 2025-01-23 12:43 | Outpatient (CLI) | payer OTHER, SELFPAY ==
--- OUTSIDE RECORDS SUMMARY | 2025-01-23 12:45 | XMS_ITS | Clinical Summary ---
Author Organization Healthcare Address [address] [place] [address] Care Team Providers Care Manager Reading Name Role Phone Linn Michael DO Primary Care Provider +1- [phone] Family History Medical History Relation Name Comments [...] Upcoming Encounters Date Type Department Care Team ([facility] st Contact Info) Description 02/07/2025 1:45 PM EDT Initial Medical Office Building Obstetrics and Gynecology [address] [facility], [address] [place] [address] Anna Garza, BALANCE WHEEL SCREW HOLE TAPPER, DNP [address] [facility] [address] [place] [address] Health Maintenance Due Date Last Done Comments [facility]-Depression Screening 1999 [facility]-/Child/Adol SDOH Screenings 1999 [facility]-Hepatitis B Vaccines (3 of 3 - 3-dose series) 02/17/2001 12/23/2000, 05/20/2000 [facility]-IPV Vaccines (3 of 3 - 4-dose series) 12/21/2003 06/22/2003, 05/20/2000 [facility]- SDOH Screenings 2017 [facility]-Adult SDOH Screenings 2017 [facility]-Pap Smear 2020 [facility]-DTaP,Tdap,and Td Vaccines (4 - Td or Tdap) 12/07/2021 12/08/2011, 06/22/2003, 05/20/2000 [id number] Vaccine (2 - season) 2024 12/26/2021 [facility]-Influenza [...] ORDERABLES Final Re sult Performing Organization Address City/[facility] Co de Phone Number SUNQUEST * Hepatitis C Antibody (06/29/2020 4:04 PM EST) Hepatitis C Antibody NEGATIVE Reference Range: Negative SUNQUEST 06/29/2020 4:04 PM EST 06/29/2020 6:21 PM EST Linn Bruno MD LAB BLOOD ORDERABLES Final Re sult Performing Organization Address City/[facility] Co de Phone Number SUNQUEST from Last 3 Months or Most Recently Relevant to Health Maintenance Insurance AETNA [facility] MEDICAID Care Teams Manager Reading Relationship Specialty Start Date End Date Linn Michael DO [address] [place] [address] [facility] - General 09/07/20
--- NOTE | 2025-01-23 13:00 | US_ITS ---
PROCEDURE: US OB TRANSVAGINAL CLINICAL INDICATION: 1 week follow up for dates and viability COMPARISON: US US OB TRANSVAGINAL from 01/16/2025 FINDINGS: Transvaginal sonographic images of the pelvis were obtained. From her last menstrual period she is 6weeks 2days. KAMILAH 09/16/2025 An intrauterine gestational sac is present with a pole with a crown-rump length of 0.79cm This correlates to a gestational age of 6weeks 6days. heart tones are present with an FHR of 134bpm. Yolk sac is noted. The yolk sac measures 4.6mm. The right ovary is surgically absent The left ovary is seen and appears normal. There continues to be a corpus luteum measuring 2.7 cm in the left ovary. There is no fluid in the cul-de-sac. IMPRESSION: 1. Viable embryo within the uterine cavity. Heart rate activity is seen. 2. The embryo measures 6 weeks and 6 days which is within 4 days of her last menstrual period. KAMILAH will remain 09/16/2025. 3. The right ovary is surgically absent. The left ovary is contains a corpus luteum that was noted 1 week ago and appears similar. 4. No fluid in the cul-de-sac. Dictated by: David Chowdary MD 01/23/2025 17:35 David Chowdary MD in OV 01/23/2025 17:35
== END 2025-01-23 23:59 | disposition home or self-care (01) ==
LOC: RAD 12:43
PROVIDERS: PCP Internal Medicine Adolescent Medicine; Visit Provider Obstetrics & Gynecology
DX: O34.81 Maternal care for other abnormalities of pelvic organs, first trimester (principal); O09.291 Supervision of pregnancy with other poor reproductive or obstetric history, first trimester; N83.12 Corpus luteum cyst of left ovary; Z90.721 Acquired absence of ovaries, unilateral; Z3A.01 Less than 8 weeks gestation of pregnancy
CPT/HCPCS: 76817

== ENCOUNTER 2025-02-07 12:29 | Outpatient (CLI) | payer OTHER, SELFPAY ==
--- OUTSIDE RECORDS SUMMARY | 2025-02-07 12:32 | XMS_ITS | Referral Summary ---
Author Organization [employer] ([place], [place], [place], [place]) Address [address] [place] [address] Care Team Providers Care Valve Tester Name Role Phone 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 Gender Identity Not on file Sexual Orientation Not on file Last Filed Vital Signs Vital Sign Reading Time Taken Comments Blood Pressure 141/91 04/28/2024 10:13 PM EST Pulse 128 04/28/2024 10:13 PM EST Temperature 37.7 C (99.8 F) 04/28/2024 10:13 PM EST Respiratory Rate 16 04/28/2024 10:13 PM EST Oxygen Saturation 95% 04/28/2024 10:13 PM EST Inhaled Oxygen Concentration - - Weight 87.1 kg (192 lb) 04/28/2024 10:13 PM EST Height 162.6 cm (5' 4 ) 04/28/2024 10:13 PM EST Body Mass Index 32.96 04/28/2024 10:13 PM EST Plan of Treatment Not on file Care Teams Valve Tester Relationship Specialty Start Date End Date [facility] [place] [address] PCP - General 04/28/24
--- OUTSIDE RECORDS SUMMARY | 2025-02-07 12:32 | XMS_ITS | Clinical Summary ---
Author Organization Healthcare Address [address] [place] [address] Care Team Providers Care Biology Intern Name Role Phone Linn Michael DO Primary Care Provider +1- [phone] Family History Medical History Relation Name Comments [...] Upcoming Encounters Date Type Department Care Team ([facility] st Contact Info) Description 02/07/2025 1:45 PM EDT Initial Medical Office Building Obstetrics and Gynecology [address] [facility], [address] [place] [address] Anna Garaz, MAINTENANCE OF WAY FOREMAN, DNP [address] [facility] [address] [place] [address] Health Maintenance Due Date Last Done Comments [facility]-Depression Screening 1999 [facility]-Infant/Child/Adol SDOH Screenings 1999 [facility]-Hepatitis B Vaccines (3 of 3 - 3-dose series) 02/17/2001 12/23/2000, 05/20/2000 [facility]-IPV Vaccines (3 of 3 - 4-dose series) 12/21/2003 06/22/2003, 05/20/2000 [facility]- SDOH Screenings 2017 [facility]-Adult SDOH Screenings 2017 [facility]-Pap Smear 2020 [facility]-DTaP,Tdap,and Td Vaccines (4 - Td or Tdap) 12/07/2021 12/08/2011, 06/22/2003, 05/20/2000 [id number] Vaccine (2 - season) 2024 12/26/2021 [facility]-Influenza [...] ORDERABLES Final Re sult Performing Organization Address City/[facility] Co de Phone Number SUNQUEST * Hepatitis C Antibody (06/29/2020 4:04 PM EST) Hepatitis C Antibody NEGATIVE Reference Range: Negative SUNQUEST 06/29/2020 4:04 PM EST 06/29/2020 6:21 PM EST Linn Bruno MD LAB BLOOD ORDERABLES Final Re sult Performing Organization Address City/[facility] Co de Phone Number SUNQUEST from Last 3 Months or Most Recently Relevant to Health Maintenance Insurance AETNA [facility] MEDICAID Care Teams Biology Intern Relationship Specialty Start Date End Date Linn Michael DO [address] [place] [address] [facility] - General 09/07/20
--- OUTSIDE RECORDS SUMMARY | 2025-02-07 12:32 | XMS_ITS | Clinical Summary ---
Author Organization [employer] ([place], [place], [place], [place]) Address [address] [place] [address] Care Team Providers Care Sales Compensation Analyst Name Role Phone [facility], Find[facility]Doc Primary Care Provider Allergies Active Allergy Reactions Criticality Noted Date Comments Sulfa (Sulfonamide Antibiotics) 05/2024 Medications No known medications Social History Tobacco Use Types Packs/Day Years Used Date Smoking Tobacco: Never Smokeless Tobacco: Never Tobacco Cessation:Counseling Given: Not Answered Comments Unknown Sex and Gender Information Value Date Recorded Sex Assigned at Not on file 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 Gender Identity Not on file Sexual Orientation [...] 04/28/2024 10:13 PM EST Plan of Treatment Health Maintenance Due Date Last Done Comments Depression Screening (12+) 2011 HIV Screening 2014 Hepatitis C Screening 2017 Lipid Panel 2019 Pap Smear 2020 DTAP/TDAP/TD VACCINES (4 - T d or Tdap) 12/07/2021 12/08/2011, 06/22/2003, 05/20/2000 COVID-19 VACCINE (2 - 2024-2 6 season) 2024 12/26/2021 Influenza Vaccine (#1) 2024 Tobacco Cessation Counseling and Screening (12+) 04/28/2025 04/28/2024 Pneumococcal Vaccine: 0-49 Years Aged Out 12/23/2000, 05/20/2000 No longer eligible based on patient's age to complete this topic Care Teams Sales Compensation Analyst Relationship Specialty Start Date End Date [facility], Find[facility]Doc [facility] [place] [address] PCP - General 04/28/24
[2025-02-07 12:58] LABS: Hematocrit 39.5 % (37.0-47.0); Hemoglobin 14.2 g/dL (12.2-16.2); Immature Granulocytes % 0.2 %; Mean Corpuscular HGB Conc 35.9 g/dL (31.8-35.4); Mean Corpuscular Hemoglobin 29.8 pg (27.0-31.2); Mean Corpuscular Volume 83.0 fl (81-99); Nucleated Red Blood Cells % 0 %; Platelet Count 237 K/mm3 (142-424); Red Blood Count 4.76 M/mm3 (4.20-5.40); Red Cell Distribution Width-SD 37.6 fL; White Blood Count 8.6 K/mm3 (4.8-10.8)
[2025-02-07 13:21] LABS: Alanine Aminotransferase 14 U/L (12-78); Albumin Level 3.9 g/dl (3.5-5.0); Albumin/Globulin Ratio 1.4 (1.1-1.8); Alkaline Phosphatase 96 U/L (38-126); Anion Gap 12.7 mEq/L (5-15); Aspartate Amino Transferase 18 U/L (14-36); Bilirubin,Total 0.8 mg/dl (0.2-1.3); Blood Urea Nitrogen 5 mg/dl (7-17); Calcium 9.3 mg/dl (8.4-10.2); Carbon Dioxide 23 mmol/L (22.0-30.0); Chloride 103 mmol/L (98-107); Creatinine,Serum 0.70 mg/dl (0.52-1.04); Estimated Glomerular Filt Rate 102 ml/min (>60); GFR (African American) 123 ML/MIN (>60); Globulin 2.8 g/dL (1.3-3.2); Glucose 88 mg/dl (74-100); Potassium 3.7 mmoL/L (3.5-5.1); Sodium 135 mmol/L (136-145); Total Protein,Serum 6.7 g/dl (6.3-8.2)
[2025-02-07 14:07] LABS: Hepatitis C Ab Qual. W/ RFX NEGATIVE (Negative)
[2025-02-07 15:37] LABS: RPR W/RFX Titers Nonreactive (Nonreactive)
[2025-02-08 07:10] LABS: Hepatitis B Surface Antigen Negative (Negative)
[2025-02-08 08:27] LABS: Rubella Antibodies, IgG 1.67 index (Immune >0.99)
== END 2025-02-07 23:59 | disposition home or self-care (01) ==
LOC: LAB 12:30
PROVIDERS: Visit Provider Obstetrics & Gynecology
DX: O10.911 Unspecified pre-existing hypertension complicating pregnancy, first trimester (principal); Z3A.00 Weeks of gestation of pregnancy not specified
CPT/HCPCS: 36415; 80053; 85025; 86592; 86762; 86787; 86803; 86850; 87086; 87340; 87389

== ENCOUNTER 2025-02-09 10:34 | Outpatient (CLI) | payer OTHER, SELFPAY ==
--- OUTSIDE RECORDS SUMMARY | 2025-02-09 10:51 | XMS_ITS | Clinical Summary ---
Author Organization [facility] Address [address] [place] [address] Care Team Providers Care Sample Examiner Name Role Phone Linn Michael DO Primary Care Provider +1- [phone] Active Problems Problem Noted Date Diagnosed Date Encounter for supervision of normal , a ntepartum 02/07/2025 Family History Medical History Relation Name Comments [...] 08/10/2020 10:13 AM EDT Plan of Treatment Health Maintenance Due Date Last Done Comments [facility]-Depression Screening 1999 [facility]-/Child/Adol SDOH Screenings 1999 [facility]-Hepatitis B Vaccines (3 of 3 - 3-dose series) 02/17/2001 12/23/2000, 05/20/2000 [facility]-IPV Vaccines (3 of 3 - 4-dose series) 12/21/2003 06/22/2003, 05/20/2000 [facility]- SDOH Screenings 2017 [facility]-Adult SDOH Screenings 2017 [facility]-Pap Smear 2020 [facility]-DTaP,Tdap,and Td Vaccines (4 - Td or Tdap) 12/07/2021 12/08/2011, 06/22/2003, 05/20/2000 [id number] Vaccine (2 - season) 2024 12/26/2021 [facility]-Influenza [...] 4:04 PM EST 06/29/2020 6:21 PM EST us Linn Brnuo MD LAB BLOOD ORDERABLES Final Re sult SUNQUEST * Hepatitis C Antibody (06/29/2020 4:04 PM EST) Hepatitis C Antibody NEGATIVE Reference Range: Negative SUNQUEST 06/29/2020 4:04 PM EST 06/29/2020 6:21 PM EST Linn Bruno MD LAB BLOOD ORDERABLES Final Re sult SUNQUEST from Last 3 Months or Most Recently Relevant to Health Maintenance Insurance AETNA [facility] MEDICAID Care Teams Sample Examiner Relationship Specialty Start Date End Date Linn Michael DO [address] [place] [address] PCP - General 09/07/20
--- OUTSIDE RECORDS SUMMARY | 2025-02-09 10:51 | XMS_ITS | Referral Summary ---
Author Organization [employer] ([place], [place], [place], [place]) Address [address] [place] [address] Care Team Providers Care Inside Channel Account Manager Name Role Phone [facility] Primary Care Provider Allergies Active Allergy Reactions Criticality Noted Date Comments Sulfa (Sulfonamide Antibiotics) 05/2024 Medications No known medications Social History Tobacco Use Types Packs/Day Years Used Date Smoking Tobacco: Never Smokeless Tobacco: Never Tobacco Cessation:Counseling Given: Not Answered Comments Unknown Sex and Gender Information Value Date Recorded Sex Assigned at Not on file 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
--- OUTSIDE RECORDS SUMMARY | 2025-02-09 10:51 | XMS_ITS | Clinical Summary ---
Author Organization [employer] ([place], [place], [place], [place]) Address [address] [place] [address] Care Team Providers Care Box Car Loader Name Role Phone [facility], Find[facility]Doc Primary Care Provider Allergies Active Allergy Reactions Criticality Noted Date Comments Sulfa (Sulfonamide Antibiotics) 05/2024 Medications No known medications Social History Tobacco Use Types Packs/Day Years Used Date Smoking Tobacco: Never Smokeless Tobacco: Never Tobacco Cessation:Counseling Given: Not Answered Comments Unknown Sex and Gender Information Value Date Recorded Sex Assigned at Not on file 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
[2025-02-10 11:16] LABS: Prot,24hr calculated 193 mg/24 hr (30-150)
== END 2025-02-09 23:59 | disposition home or self-care (01) ==
LOC: LAB 10:35
PROVIDERS: Visit Provider Obstetrics & Gynecology
DX: O10.919 Unspecified pre-existing hypertension complicating pregnancy, unspecified trimester (principal); Z3A.00 Weeks of gestation of pregnancy not specified
CPT/HCPCS: 84156

== ENCOUNTER 2025-03-01 14:25 | Outpatient (CLI) | payer OTHER, SELFPAY ==
--- OUTSIDE RECORDS SUMMARY | 2025-03-01 14:29 | XMS_ITS | Clinical Summary ---
Author Organization [facility] Address [address] [place] [address] Care Team Providers Care Tin Pot Operator Name Role Phone Linn Michael DO Primary Care Provider [phone] Active Problems Problem Noted Date Diagnosed Date [...] Td or Tdap) 12/07/2021 12/08/2011, 06/22/2003, 05/20/2000 [id number] Vaccine (2 - season) 2024 12/26/2021 [facility]-Influenza Vaccine (#1) 12/26/202403/30, 02/13/2012 [facility]-Zoster Vaccines (1 of 2) 2049, 12/23/2000 [facility]-HIB Vaccines Completed 12/23/2000, 05/20/2000 [facility]-Pneumococcal Vaccine: Pediatrics (0 to 5 Years) and At-Risk Patients (6 to 49 Years) Aged Out 12/23/2000, 05/20/2000 No longer eligible based on patient's age to complete this topic [facility]-Varicella Vaccines Completed 2, 12/23/2000 HPV Vaccines Completed 09/15/2012, 12/08/2011 [facility]-Hepatitis A Vaccines Aged Out No longer eligible based on patient's age to complete this topic [facility]-Rotavirus Vaccines Aged Out No lo nger eligible based on patient's age to complete this topic Insurance [employer] [facility] MEDICAID Care Teams Tin Pot Operator Relationship Specialty Start Date End Date Linn Michael DO [address] [facility] [address] [place] [id number] PCP - General 09/07/20
--- OUTSIDE RECORDS SUMMARY | 2025-03-01 14:29 | XMS_ITS | Clinical Summary ---
Author Organization [facility] ([place], [place], [place], [place], [place]) Address [address] [place] [id number] Care Team Providers Care Voice Data Communications Engineer Name Role Phone [facility], [facility]Doc Primary Care Provider Allergies Active Allergy Reactions Criticality Noted Date Comments Sulfa (Sulfonamide Antibiotics) 05/2024 Medications No known medications Social History Tobacco Use Types Packs/Day Years Used Date Smoking Tobacco: Never Smokeless Tobacco: Never Tobacco Cessation:Counseling Given: Not Answered Comments Unknown Sex and Gender Information Value Date Recorded Sex Assigned at Not on file 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
--- OUTSIDE RECORDS SUMMARY | 2025-03-01 14:29 | XMS_ITS | Referral Summary ---
Author Organization [facility] ([place], [place], [place], [place], [place]) Address [address] [place] [id number] Care Team Providers Care Stna Name Role Phone [facility] Primary Care Provider Allergies Active Allergy Reactions Criticality Noted Date Comments Sulfa (Sulfonamide Antibiotics) 05/2024 Medications No known medications Social History Tobacco Use Types Packs/Day Years Used Date Smoking Tobacco: Never Smokeless Tobacco: Never Tobacco Cessation:Counseling Given: Not Answered Comments Unknown Sex and Gender Information Value Date Recorded Sex Assigned at Not on file 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
== END 2025-03-01 23:59 | disposition home or self-care (01) ==
LOC: LAB 14:26
PROVIDERS: Visit Provider Obstetrics & Gynecology
DX: R69 Illness, unspecified (principal)